=== PATIENT | female | born 1970 | race Caucasian/White ===

== ENCOUNTER → 2017-11-22 15:15 | Outpatient (CLI) | payer MEDICAID, SELFPAY ==
[2017-11-22 17:52] LABS: Anion Gap 11 (5-15); BUN 12 mg/dL (7-18); BUN/Creat Ratio 11.9 RATIO (10-20); Calcium,Total 8.9 mg/dL (8.5-10.1); Chloride 104 mmol/L (98-107); Cholesterol 218 mg/dL (200); Creatinine, Serum 1.01 mg/dL (0.55-1.02); EST Glomerular Filtration Rate 63 mL/min (>60); Est Glom Filt Rate - Afr Amer 76 mL/min (>60); Glucose 80 mg/dL (74-106); High Density Lipoprotein 37 mg/dL; Potassium 4.1 mmol/L (3.5-5.1); Sodium Level 140 mmol/L (136-145); T4 Total, Thyroxin 10.5 ug/dL (4.8-13.9); Thyroid Stim Hormone (TSH) 2.96 uIU/mL (0.358-3.74); Triglycerides 133 mg/dL; Very Low Density Lipoprotein 27 mg/dL (5-40)
[2017-11-22 18:29] LABS: HIV - WCH Non-Reactive (Nonreactive)
[2017-11-24 15:01] LABS: HPV Reflexed? NOT INDICATED
[2017-11-24 20:07] LABS: HEPATITIS B SURFACE AG Negative (Negative); Hepatitis B Core Ab Total Negative (Negative); Hepatitis Be Ab Negative (Negative); Hepatitis Be Ag Negative (Negative)
[2017-11-26 10:00] LABS: Hep B Surface Antibodies Non Reactive (.); Hep C Antibodies <0.1 s/co ratio (0.0-0.9); Hepatitis B Core AB IgM Negative (Negative)
== END ==
PROVIDERS: Family Provider Family Medicine; PCP Family Medicine; Visit Provider Family Medicine
DX: Z00.00 Encounter for general adult medical examination without abnormal findings (principal); I10 Essential (primary) hypertension; E03.9 Hypothyroidism, unspecified; Z12.4 Encounter for screening for malignant neoplasm of cervix; W46.0XXA Contact with hypodermic needle, initial encounter
CPT/HCPCS: 36415; 80048; 80061; 84436; 84443; 86703; 86704; 86705; 86706; 86707; 86803; 87340; 87350; 88175; G0145

== ENCOUNTER 2018-02-27 10:27 | Emergency (ER) | payer MEDICAID, SELFPAY ==
[2018-02-27 10:28] VITALS: BP 156/89; PULSE 70; RESP 15; TEMP 35.6; BMI 45.1
--- NOTE | 2018-02-27 10:56 | ED.VISSUMM ---
- ER Visit Summary Date of Service: 02/27/18 Chief Complaint: Left index finger laceration History of Present Illness: The patient is a 47 F past medical history of hypertension and hypothyroidism. Patient is right-hand dominant. Patient states she believes she needs update on her tetanus since her last tetanus shot was around 7-10 years ago but is not quite sure. Today she was cooking at home using a hand-held powder blender and pourer type of device and lacerated the tip of her left index finger. She denies any other injuries. This occurred within the last half an hour. She states it was bleeding but now the skin is seen in the leg down and is not bleeding currently. She denies any other injuries. Physical Examination: Well-appearing middle-age female. Vital signs are stable. She is afebrile. HEENT exam unremarkable. Lungs clear to auscultation. Heart regular rhythm. Abdomen soft nontender. Extremities moving all 4. Neurovascularly intact. Specifically the left hand there is a flap laceration on the palmar aspect the distal end of the left index finger. Skin is lay down. There is some dried blood but currently no bleeding. I cannot easily separate the wound. She has full flexion extension all digits of the left hand. There is no foreign body noted. No signs of infection. No active bleeding. She has normal touch sensation all digits. There is no bony deformity. Test Results: None Emergency Department Course and Treatment: Patient's tetanus status will be updated. I discussed with both her and her . Currently I cannot open the wound easily. She is comfortable with this being cleaned and dressed without any type of suture repair. Treatment Plan: Wound care. Disposition: Discharge Impression: Left index finger flap laceration without suture repair Tetanus updated This note was generated with [employer] dictation software. It may contain incorrect words, spelling, and punctuation that were not noted in review of the chart prior to signing ED Disposition - Plan for ED Patient: Chief Complaint: Laceration Referrals: Marylu Cartwright MD [Primary Care Provider] -
--- NOTE | 2018-02-27 10:59 | ED.DCSUM_ITS ---
- ER Visit Summary Date of Service: 02/27/18 Chief Complaint: Left index finger laceration History of Present Illness: The patient is a 47 F past medical history of hypertension and hypothyroidism. Patient is right-hand dominant. Patient states she believes she needs update on her tetanus since her last tetanus shot was around 7-10 years ago but is not quite sure. Today she was cooking at home using a hand-held inside sales engineer type of device and lacerated the tip of her left index finger. She denies any other injuries. This occurred within the last half an hour. She states it was bleeding but now the skin is seen in the leg down and is not bleeding currently. She denies any other injuries. Physical Examination: Well-appearing middle-age female. Vital signs are stable. She is afebrile. HEENT exam unremarkable. Lungs clear to auscultation. Heart regular rhythm. Abdomen soft nontender. Extremities moving all 4. Neurovascularly intact. Specifically the left hand there is a flap laceration on the palmar aspect the distal end of the left index finger. Skin is lay down. There is some dried blood but currently no bleeding. I cannot easily separate the wound. She has full flexion extension all digits of the left hand. There is no foreign body noted. No signs of infection. No active bleeding. She has normal touch sensation all digits. There is no bony deformity. Test Results: None Emergency Department Course and Treatment: Patient's tetanus status will be updated. I discussed with both her and her . Currently I cannot open the wound easily. She is comfortable with this being cleaned and dressed without any type of suture repair. Treatment Plan: Wound care. Disposition: Discharge Impression: Left index finger flap laceration without suture repair Tetanus updated This note was generated with [employer] dictation software. It may contain incorrect words, spelling, and punctuation that were not noted in review of the chart prior to signing ED Disposition - Plan for ED Patient: Chief Complaint: Laceration Referrals: Marylu Cartwright MD [Primary Care Provider] -
--- NOTE | 2018-02-27 10:59 | ED.DEP ---
ED Disposition - Plan for ED Patient: Disposition: Home or Assisted Living Chief Complaint: Laceration Instructions: ED Laceration Hand Referrals: Marylu Cartwright MD [Primary Care Provider] - As Needed Additional Instructions: Keep wound clean and dry. Keep the wound covered for the first 7 days. Apply antibiotic ointment daily. You may leave our dressing on for 3-5 days as long as it stays dry and clean. Return if any signs of infection.
[2018-02-27] MEDS: Diphth,Pertuss(Acell),Tet Vac 0.5 ML Vial IM (11:09)
--- OUTSIDE RECORDS SUMMARY | 2018-04-22 22:54 | XMS RPT_ITS ---
:1970 Author Organization OHIP Care Team Providers Name Role Phone Marylu Cartwright Attending Unavailable Marylu Cartwright Primary Care Unavailable Marylu Cartwright Primary Care Unavailable Dayday Stephenson Attending Unavailable Marylu Cartwright Attending Unavailable Marylu Cartwright Referring Unavailable Marylu Cartwright Primary Care Unavailable PROBLEMS PROBLEMS No Problem Records FoundPROCEDURES PROCEDURES No Procedure Records FoundRESULTS RESULTS NCS AND/OR EMG Observed: 03/02/2018 Status: F Source: [place] PATIENT 3:18 PM [facility] [place] [facility] Pulmonary Services/Neurology [address] [place] [address] MR#: [id number] Acct: [id number] Name: MAKENNA RAMIREZ Rep #: [id number] : 1970 47 From: Santos Thibodeaux MD Referring Dr: Marylu Cartwright MD Status: REG CLI Ordering Dr: Date: Location: [facility] Sex: F C NCS and/or EMG Patient Report Ordering Doctor: Marylu Cartwright DATE OF SERVICE: 03/02/18 Makenna Ramirez is a 47-year-old female presents for electrodiagnostic testing of the upper limbs. She has chief complaint of numbness and tingling in both hands. Electrodiagnostic findings: Median motor nerve demonstrates prolonged distal latency with normal amplitude and reduced conduction velocity on the right side. The left median motor nerve demonstrates prolonged distal latency with normal amplitude and conduction velocity. Normal ulnar motor response bilaterally. Normal median and ulnar F waves. Prolonged median sensory distal latency at the wrist bilaterally. Prolonged palmar median latencies noted bilaterally. Normal ulnar and radial sensory responses. Needle EMG testing shows no evidence of denervation in any muscle tested. Motor unit action potentials were of normal amplitude and duration. Electrodiagnostic impression: This is an abnormal study in the upper limbs. 1. Electrodiagnostic findings demonstrate bilateral median mononeuropathy. This is consistent with a moderate right carpal tunnel syndrome. Is also consistent with a mild to moderate left carpal tunnel syndrome. 2. No electrodiagnostic evidence for ulnar neuropathy, including cubital tunnel syndrome. If there are any further questions, please do not hesitate to contact me 03/02/18 1518 <Electronically signed by Santos Thibodeaux MD> Date Santos Thibodeaux MD CC: Marylu Cartwright MD; Santos Thibodeaux Date Dictated: 03/02/18 143 Date Transcribed: 03/02/181435 Biztalk Consultant: AA Signed EMERGENCY DEPARTMENT Observed: 02/27/2018 Status: F Source: [place] SUMMARY 4:37 PM [facility] [place] [facility] Medical Records Department [address] [place] [address] Emergency Department Summary 02/27/18 1056 MR#: [id number] Acct: [id number] Name: MAKENNA RAMIREZ Rep #: [id number] : 1970 47 From: Dayday Stephenson MD PCP: Marylu Cartwright MD Status: DEP ER - ER Visit Summary Date of Service: 02/27/18 Chief Complaint: Left index finger laceration History of Present Illness: The patient is a 47 F past medical history of hypertension and hypothyroidism. Patient is right-hand dominant. Patient states she believes she needs update on her tetanus since her last tetanus shot was around 7-10 years ago but is not quite sure. Today she was cooking at home using a hand-held gear hobber set up operator type of device and lacerated the tip of her left index finger. She denies any other injuries. This occurred within the last half an hour. She states it was bleeding but now the skin is seen in the leg down and is not bleeding currently. She denies any other injuries. Physical Examination: Well-appearing middle-age female. Vital signs are stable. She is afebrile. HEENT exam unremarkable. Lungs clear to auscultation. Heart regular rhythm. Abdomen soft nontender. Extremities moving all 4. Neurovascularly intact. Specifically the left hand there is a flap laceration on the palmar aspect the distal end of the left index finger. Skin is lay down. There is some dried blood but currently no bleeding. I cannot easily separate the wound. She has full flexion extension all digits of the left hand. There is no foreign body noted. No signs of infection. No active bleeding. She has normal touch sensation all digits. There is no bony deformity. Test Results: None Emergency Department Course and Treatment: Patient's tetanus status will be updated. I discussed with both her and her . Currently I cannot open the wound easily. She is comfortable with this being cleaned and dressed without any type of suture repair. Treatment Plan: Wound care. Disposition: Discharge Impression: Left index finger flap laceration without suture repair Tetanus updated This note was generated with AwesomeTouch dictation software. It may contain incorrect words, spelling, and punctuation that were not noted in review of the chart prior to signing ED Disposition - Plan for ED Patient: Chief Complaint: Laceration Referrals: Marylu Cartwright MD [Primary Care Provider] - What to do if you have Problems For any increased pain, shortness of breath, bleeding, nausea or vomiting, chest pain, or any unexpected problems, contact your Primary Care Provider. Call [facility] ([phone]) or report to the closest Emergency Room. Call 911 if necessary. 02/27/18 0996 <Electronically signed by Dayday Stephenson MD> Date Dayday Stephenson MD Cosigner Signature (If Indicated): Date CC: Marylu Cartwright MD DISCHARGE INSTRUCTION Observed: 02/27/2018 Status: F Source: [place] 4:37 PM [facility] [place] [facility] Medical Records Department [address] [place] [address] Discharge Instruction 02/27/18 1059 MR#: [id number] Acct: [id number] Name: MAKENNA RAMIREZ Rep #: [id number] : 1970 47 From: Dayday Stephenson MD PCP: Marylu Cartwright MD Status: DEP ER ED Disposition - Plan for ED Patient: Disposition: Home or Assisted Living Chief Complaint: Laceration Instructions: ED Laceration Hand Referrals: Marylu Cartwright MD [Primary Care Provider] - As Needed Additional Instructions: Keep wound clean and dry. Keep the wound covered for the first 7 days. Apply antibiotic ointment daily. You may leave our dressing on for 3-5 days as long as it stays dry and clean. Return if any signs of infection. What to do if you have Problems For any increased pain, shortness of breath, bleeding, nausea or vomiting, chest pain, or any unexpected problems, contact your Primary Care Provider. Call [facility] ([phone]) or report to the closest Emergency Room. Call 911 if necessary. 02/27/18 1637 <Electronically signed by Dayday Stephenson MD> Date Dayday Stephenson MD Cosigner Signature (If Indicated): Date CC: Marylu Cartwright MD BASIC METABOLIC Collected: 11/22/2017 Status: F Source: [place] PROFILE (BMP) 3:17 PM [facility] [place] Order Comment: Order Date: 11/22/17 Order Info: 0667-1 - BMP Order Info: 23677-7 - LIPID Order Info: 3026-2 - T4 Order Info: 3016-3 - TSH TYPE CODE TESTS RESULT OUT OF RANGE REFERENCE UNITS LAB L501.0100 74-106 mg/dL Normal GLU 80 Result Comment: Please note revised GLUCOSE reference range effective 2017. LAB L501.1000 7-18 mg/dL Normal BUN 12 LAB L501.1100 0.55-1.02 mg/dL Normal CREAT,SERUM 1.01 Result Comment: The validity of the calculated GFR AND GFRAA in patients over 70 years has not been determined. Clinical correlation is essential. LAB L501.1110 >60 mL/min Normal EST GFR 63 Result Comment: Non- GFR Calc LAB L501.1115 >60 mL/min Normal EST GFR - AA 76 Result Comment: GFR Calc LAB L501.1300 10-20 RATIO Normal BUN/CRE 11.9 LAB L501.2200 8.5-10.1 mg/dL CA Normal 8.9 LAB L501.5300 136-145 mmol/L NA Normal 140 LAB L501.5600 3.5-5.1 mmol/L K Normal 4.1 LAB L501.5900 98-107 mmol/L CL Normal 104 LAB L501.6100 21.0-32.0 mmol/L Normal CO2 25.0 LAB L501.6200 5-15 Normal GAP 11 Performed By: #### L500.2500, L500.4100, L501.9310, L501.9520, L3890.6005 #### [facility] [address] [place], [place], [address] #### L3100.0390, L3100.0420, L3100.0440, L3100.0460, L3100.0480, L3100.0528, L3100.0625 #### [facility] (refer to report for specific site) refer to report for address and phone number LIPID PROFILE Collected: 11/22/2017 Status: F Source: [place] 3:17 PM [facility] [place] [facility] Order Comment: Order Date: 11/22/17 Order Info: 0667-1 - BMP Order Info: 70484-4 - LIPID Order Info: 3026-2 - T4 Order Info: 3016-3 - TSH TYPE CODE TESTS RESULT OUT OF RANGE REFERENCE UNITS LAB L501.4900 200 mg/dL High CHOL 218 Result Comment: <200 mg/dL Desirable 200-240 mg/dL Borderline >240 mg/dL High Risk LAB L501.5000 mg/dL Normal TRIG 133 Result Comment: The drugs N-Acetylcysteine and Metamizole may falsely depress this assay. Serum Triglycerides Reference Interval Normal <150 mg/dL Borderline high 150 - 199 mg/dL High 200 - 499 mg/dL Very High > or = 500 mg/dL LAB L501.6400 mg/dL Low HDL 37 Result Comment: The drugs N-Acetylcysteine and Metamizole may falsely depress this assay. Reference Range HDL <40 mg/dL Low HDL Cholesterol HDL >or= 60 mg/dL High HDL Cholesterol LAB L501.6500 0-130 mg/dL High LDL 154 LAB L501.6600 5-40 mg/dL Normal VLDL 27 Performed By: #### L500.2500, L500.4100, L501.9310, L501.9520, L3890.6005 #### [facility] [address] [facility] [place], [address] #### L3100.0390, L3100.0420, L3100.0440, L3100.0460, L3100.0480, L3100.0528, L3100.0625 #### [facility] (refer to report for specific site) refer to report for address and phone number T4 TOTAL, THYROXIN Collected: 11/22/2017 Status: F Source: [place] 3:17 PM [facility] [place] [facility] Order Comment: Order Date: 11/22/17 Order Info: 0667-1 - BMP Order Info: 76866-0 - LIPID Order Info: 3026-2 - T4 Order Info: 3016-3 - TSH TYPE CODE TESTS RESULT OUT OF RANGE REFERENCE UNITS LAB L501.9310 4.8-13.9 ug/dL T4 Normal THYROXIN 10.5 Performed By: #### L500.2500, L500.4100, L501.9310, L501.9520, L3890.6005 #### [facility] [address] [facility] [place], [address] #### L3100.0390, L3100.0420, L3100.0440, L3100.0460, L3100.0480, L3100.0528, L3100.0625 #### [facility] (refer to report for specific site) refer to report for address and phone number THYROID STIM HORMONE Collected: 11/22/2017 Status: F Source: [place] (TSH) 3:17 PM [facility] [place] [facility] Order Comment: Order Date: 11/22/17 Order Info: 0667-1 - BMP Order Info: 13694-6 - LIPID Order Info: 3026-2 - T4 Order Info: 3016-3 - TSH TYPE CODE TESTS RESULT OUT OF RANGE REFERENCE UNITS LAB L501.9520 0.358-3.74 uIU/mL Normal TSH 2.96 Performed By: #### L500.2500, L500.4100, L501.9310, L501.9520, L3890.6005 #### [facility] [address] [facility] [place], [address] #### L3100.0390, L3100.0420, L3100.0440, L3100.0460, L3100.0480, L3100.0528, L3100.0625 #### [facility] (refer to report for specific site) refer to report for address and phone number HIV - [facility] Collected: 11/22/2017 Status: F Source: [place] 3:17 PM [facility] [place] Order Comment: Order Date: 11/22/17 Order Info: 0197-1 - VIAB TYPE CODE TESTS RESULT OUT OF RANGE REFERENCE UNITS LAB L3890.6005 Nonreactive Normal HIV - [facility] Non-Reactive Performed By: #### L500.2500, L500.4100, L501.9310, L501.9520, L3890.6005 #### [facility] [address] [facility] [place], [address] #### L3100.0390, L3100.0420, L3100.0440, L3100.0460, L3100.0480, L3100.0528, L3100.0625 #### [facility] (refer to report for specific site) refer to report for address and phone number HEPATITIS B SURFACE Collected: 11/22/2017 Status: F Source: [place] AG 3:17 PM [facility] [place] [facility] Order Comment: Order Date: 11/22/17 Order Info: 0433-1 - HEBSAG Order Info: 88981-7 - HEBEAG Order Info: 56887-4 - HEBCM Order Info: 05183-7 - HEBCT Order Info: 44005-5 - HEBEAB Order Info: 42154-5 - HEBSAB Order Info: 0363-1 - HECAB TYPE CODE TESTS RESULT OUT OF RANGE REFERENCE UNITS LAB L3100.0400 Negative Normal HB Negative SURF AG Performed By: #### L500.2500, L500.4100, L501.9310, L501.9520, L3890.6005 #### [facility] [address] [place], [address] #### L3100.0390, L3100.0420, L3100.0440, L3100.0460, L3100.0480, L3100.0528, L3100.0625 #### [facility] (refer to report for specific site) refer to report for address and phone number HEPATITIS BE AG Collected: 11/22/2017 Status: F Source: [place] 3:17 PM [facility] [place] Order Comment: Order Date: 11/22/17 Order Info: 0433-1 - HEBSAG Order Info: 66378-3 - HEBEAG Order Info: 82387-0 - HEBCM Order Info: 02850-9 - HEBCT Order Info: - HEBEAB Order Info: 60863-0 - HEBSAB Order Info: 0363-1 - HECAB TYPE CODE TESTS RESULT OUT OF RANGE REFERENCE UNITS LAB L3100.0420 Negative Normal HEP Negative Be AG 6619 Performed By: #### L500.2500, L500.4100, L501.9310, L501.9520, L3890.6005 #### [facility] [address] [place], [address] #### L3100.0390, L3100.0420, L3100.0440, L3100.0460, L3100.0480, L3100.0528, L3100.0625 #### [facility] (refer to report for specific site) refer to report for address and phone number HEPATITIS B CORE AB Collected: 11/22/2017 Status: F Source: [place] IGM 3:17 PM [facility] RE[facility] Order Comment: Order Date: 11/22/17 Order Info: 043- - HEBSAG Order Info: 60881-8 - HEBEAG Order Info: 63207-1 - HEBCM Order Info: 00909-7 - HEBCT Order Info: 45660-0 - HEBEAB Order Info: 56136-5 - HEBSAB Order Info: 0363-1 - HECAB TYPE CODE TESTS RESULT OUT OF RANGE REFERENCE UNITS LAB L3100.0440 Negative Normal HB Negative CORE [id number] Result Comment: Performed at: [facility] [address] [id number] Director Food And Beverage: Hernan Martinez PhD, Phone: [phone] Performed By: #### L500.2500, L500.4100, L501.9310, L501.9520, L3890.6005 #### [facility] [address] [place], [address] #### L3100.0390, L3100.0420, L3100.0440, L3100.0460, L3100.0480, L3100.0528, L3100.0625 #### [facility] (refer to report for specific site) refer to report for address and phone number HEPATITIS B CORE AB Collected: 11/22/2017 Status: F Source: [place] TOTAL 3:17 PM [facility] [place] Order Comment: Order Date: 11/22/17 Order Info: 043- - HEBSAG Order Info: 12167-3 - HEBEAG Order Info: 12825-3 - HEBCM Order Info: 34153-0 - HEBCT Order Info: - HEBEAB Order Info: 44807-7 - HEBSAB Order Info: 0363-1 - HECAB TYPE CODE TESTS RESULT OUT OF RANGE REFERENCE UNITS LAB L3100.0460 Negative Normal HEP B Negative CORE,TOT Performed By: #### L500.2500, L500.4100, L501.9310, L501.9520, L3890.6005 #### [facility] [address] [place], [place], [address] #### L3100.0390, L3100.0420, L3100.0440, L3100.0460, L3100.0480, L3100.0528, L3100.0625 #### [facility] (refer to report for specific site) refer to report for address and phone number HEPATITIS BE AB Collected: 11/22/2017 Status: F Source: [place] 3:17 PM [facility] [place] [facility] Order Comment: Order Date: 11/22/17 Order Info: 3-1 - HEBSAG Order Info: 33158-5 - HEBEAG Order Info: 68813-9 - HEBCM Order Info: - HEBCT Order Info: - HEBEAB Order Info: - HEBSAB Order Info: 036-1 - HECAB TYPE CODE TESTS RESULT OUT OF RANGE REFERENCE UNITS LAB L3100.0480 Negative Normal HEP Negative Be Ab 6635 Performed By: #### L500.2500, L500.4100, L501.9310, L501.9520, L3890.6005 #### [facility] [address] [place], [place], [address] #### L3100.0390, L3100.0420, L3100.0440, L3100.0460, L3100.0480, L3100.0528, L3100.0625 #### [facility] (refer to report for specific site) refer to report for address and phone number HEP B SURFACE Collected: 11/22/2017 Status: F Source: [place] ANTIBODIES 3:17 PM [facility] [place] [facility] Order Comment: Order Date: 11/22/17 Order Info: 0433-1 - HEBSAG Order Info: 36034-5 - HEBEAG Order Info: 88512-0 - HEBCM Order Info: - HEBCT Order Info: - HEBEAB Order Info: - HEBSAB Order Info: 0363-1 - HECAB TYPE CODE TESTS RESULT OUT OF RANGE REFERENCE UNITS LAB L3100.0528 . Normal Hep B Non Reactive Dale AB Result Comment: Non Reactive: Inconsistent with immunity, less than 10 mIU/mL Reactive: Consistent with immunity, greater than 9.9 mIU/mL Performed By: #### L500.2500, L500.4100, L501.9310, L501.9520, L3890.6005 #### [facility] [address] [place], [place], [address] #### L3100.0390, L3100.0420, L3100.0440, L3100.0460, L3100.0480, L3100.0528, L3100.0625 #### [facility] (refer to report for specific site) refer to report for address and phone number HEPATITIS C ANTIBODIES Collected: 11/22/2017 Status: F Source: [place] 3:17 PM [facility] [place] [facility] Order Comment: Order Date: 11/22/17 Order Info: 0433-1 - HEBSAG Order Info: 99996-2 - HEBEAG Order Info: 09870-4 - HEBCM Order Info: 65635-1 - HEBCT Order Info: 39479-3 - HEBEAB Order Info: 10085-0 - HEBSAB Order Info: 0363-1 - HECAB TYPE CODE TESTS RESULT OUT OF RANGE REFERENCE UNITS LAB L3100.0650 0.0-0.9 s/co ratio Normal HEP C AB <0.1 Result Comment: Negative: < 0.8 Indeterminate: 0.8 - 0.9 Positive: > 0.9 The CDC recommends that a positive HCV antibody result be followed up with a HCV Nucleic Acid Amplification test (345688). Performed By: #### L500.2500, L500.4100, L501.9310, L501.9520, L3890.6005 #### [facility] [address] 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 of containers..01 ThinPrep Vial TYPE CODE TESTS RESULT OUT OF RANGE REFERENCE UNITS LAB L7400.0800 . Normal DIAGN Comment Result Comment: NEGATIVE FOR INTRAEPITHELIAL LESION AND MALIGNANCY. LAB L7400.0900 . Normal ADEQ Comment Result Comment: Satisfactory for evaluation. Endocervical and/or squamous metaplastic cells (endocervical component) are present. LAB L7400.1400 . Normal PERFORM Comment Result Comment: Erica Sanford, Animal Biologist (ASCP) LAB L7400.2575 . Normal TEST METHOD Comment Result Comment: This liquid based ThinPrep(R) pap test was screened with the use of an image guided system. LAB L7400.2600 . Normal . COMM LAB L7400.2700 . Normal PAPSMR Comment Result Comment: The Pap smear is a screening test designed to aid in the detection of premalignant and malignant conditions of the uterine cervix. It is not a diagnostic procedure and should not be used as the sole means of detecting cervical cancer. Both false-positive and false-negative reports do occur. LAB L7400.2800 . Normal HPV RFLX Comment Result Comment: The HPV DNA reflex criteria were not met with this specimen result therefore, no HPV testing was performed. Performed at: [facility] [id number] Director Food And Beverage: Mitzi Rachel MD, Phone: [phone] Performed By: #### L7400.0350 #### [facility] (refer to report for specific site) refer to report for address and phone number ALLERGIES ALLERGIES DATE TYPE / CODE NAME / CODE REACTION SEVERITY SOURCE 02/27/2018 [facility]/F00 [facility] [address](SNOMED [id number](RXNOR Repository CT) M) ENCOUNTERS ENCOUNTERS ADMIT/DISCHARGE ACCOUNT ADMITTING ENCOUNTER LOCATION SOURCE NUMBER CLASS 03/02/2018 [id number] Ambulatory [place] 9 [facility] ing:PSN Repository 02/27/2018/ [id number] Emergency [place] 8 9 [facility] ing:ED Repository 11/22/2017 [id number] Ambulatory [place] 8 [facility] ing:MFPLAB Repository PAYERS PAYERS ENCOUNTER GUARANTOR PAYER SUBSCRIBER SOURCE 03/02/2018 SIMI Chaudhari Primary Insurance:[facility] MAKENNA [id number] [facility] PLANPolicy DULANEYDOB: [facility] [place] [place] Number: [id number] [address]Brk: 330 [id number] Repository [phone] (HP) Date:1834-08-17BO [address] [address]IP: 03/02/2018 Secondary NOT GIVENUNK [place] Insurance:SELF PAY [facility] Number: Effective Repository Date:2017-11-22 02/27/2018 SIMI Chaudhari Primary Insurance:[facility] MAKENNA [id number] [facility] PLANPolicy DULANEYDOB: [facility] [place], [place] Number: [id number] [address]Pip: 330 [id number] Repository [phone] (HP) Date:[id number] [address] [address]KC: 02/27/2018 Secondary NOT GIVENUNK Campbell Insurance:SELF PAY [facility] Number: Effective Repository Date:2018-02-27 11/22/2017 Richard Chaudhari Primary Insurance:[facility] Makenna Bolanosy147 [facility] [place]aneyD[facility]: [facility] [place] Number: [id number] [address]Rgf: 330 [id number] Repository [phone] (HP) Date:[id number] [address] [address]UT: 11/22/2017 Secondary NOT GIVENUNK Stanley Insurance:SELF PAY [facility] Number: Effective Repository Date:2017-11-22
== END 2018-02-27 11:34 | disposition home or self-care (01) ==
LOC: ED 11:05
PROVIDERS: Emergency Provider Emergency Medicine; Family Provider Family Medicine; PCP Family Medicine
DX: S61.211A Laceration without foreign body of left index finger without damage to nail, initial encounter (principal); Z23 Encounter for immunization; E03.9 Hypothyroidism, unspecified; I10 Essential (primary) hypertension; Z79.899 Other long term (current) drug therapy; W29.0XXA Contact with powered kitchen appliance, initial encounter; Y93.G1 Activity, food preparation and clean up; Y92.000 Kitchen of unspecified non-institutional (private) residence as the place of occurrence of the external cause; Y99.8 Other external cause status
CPT/HCPCS: 90715; 99282

== ENCOUNTER → 2018-03-02 13:20 | Outpatient (CLI) | payer MEDICAID, SELFPAY ==
[2018-02-27 10:28] VITALS: BMI 45.1
--- NOTE | 2018-03-02 14:36 | NEURO ---
NCS and/or EMG Patient Report Ordering Doctor: Marylu Cartwright DATE OF SERVICE: 03/02/18 Makenna Maher is a 47-year-old female presents for electrodiagnostic testing of the upper limbs. She has chief complaint of numbness and tingling in both hands. Electrodiagnostic findings: Median motor nerve demonstrates prolonged distal latency with normal amplitude and reduced conduction velocity on the right side. The left median motor nerve demonstrates prolonged distal latency with normal amplitude and conduction velocity. Normal ulnar motor response bilaterally. Normal median and ulnar F waves. Prolonged median sensory distal latency at the wrist bilaterally. Prolonged palmar median latencies noted bilaterally. Normal ulnar and radial sensory responses. Needle EMG testing shows no evidence of denervation in any muscle tested. Motor unit action potentials were of normal amplitude and duration. Electrodiagnostic impression: This is an abnormal study in the upper limbs. 1. Electrodiagnostic findings demonstrate bilateral median mononeuropathy. This is consistent with a moderate right carpal tunnel syndrome. Is also consistent with a mild to moderate left carpal tunnel syndrome. 2. No electrodiagnostic evidence for ulnar neuropathy, including cubital tunnel syndrome. If there are any further questions, please do not hesitate to contact me
== END ==
PROVIDERS: Family Provider Family Medicine; PCP Family Medicine; Referring Provider Family Medicine; Visit Provider Family Medicine
DX: G56.00 Carpal tunnel syndrome, unspecified upper limb (principal)
CPT/HCPCS: 95886; 95912

== ENCOUNTER → 2019-09-06 | Outpatient (CLI) | payer MEDICAID, SELFPAY ==
[2019-09-06 12:45] LABS: Anion Gap 8 (5-15); BUN 13 mg/dL (7-18); BUN/Creat Ratio 13.9 RATIO (10-20); Calcium,Total 9.3 mg/dL (8.5-10.1); Chloride 103 mmol/L (98-107); Creatinine, Serum 0.93 mg/dL (0.55-1.02); EST Glomerular Filtration Rate 69 mL/min (>60); Est Glom Filt Rate - Afr Amer 83 mL/min (>60); Glucose 137 mg/dL (74-106); Potassium 4.4 mmol/L (3.5-5.1); Sodium Level 137 mmol/L (136-145); T4 Total, Thyroxin 9.3 ug/dL (4.8-13.9); Thyroid Stim Hormone (TSH) 2.43 uIU/mL (0.358-3.74)
== END | disposition home or self-care (01) ==
LOC: MFPLAB 10:00
PROVIDERS: PCP Family Medicine; Visit Provider Family Medicine
DX: E03.9 Hypothyroidism, unspecified (principal); I10 Essential (primary) hypertension
CPT/HCPCS: 36415; 80048; 84436; 84443

== ENCOUNTER → 2021-03-19 10:31 | Outpatient (CLI) | payer MEDICAID, SELFPAY ==
--- NOTE | 2021-03-19 12:28 | NEURO_ITS ---
NCS and/or EMG Patient Report Ordering Doctor: Swetha Peña DATE OF SERVICE: 03/19/21 Makenna Maher presents for electrodiagnostic testing of the upper limbs. She reports nonrecurring numbness and tingling in the hands for the past 4 months. She had bilateral carpal tunnel repair in July 2019 with excellent relief of symptoms. She reports intermittent neck pain in the schedule for an MRI. Electrodiagnostic findings: Median motor nerve demonstrates prolonged distal latency bilaterally with normal amplitude and conduction velocity. Normal ulnar motor response bilaterally. Prolonged median sensory latency bilaterally. Prolonged right median palmar latency. Normal ulnar and radial sensory respons es. On needle EMG, all muscles tested in the upper limbs and the cervical paraspinal showed no evidence of denervation with normal motor unit action potentials Electrodiagnostic assessment: This is an abnormal study in the upper limbs. 1. Electrodiagnostic findings demonstrate bilateral median mononeuropathy, consistent with a mild recurrent bilateral carpal tunnel syndrome. 2. No electrodiagnostic evidence is noted for cervical radiculopathy. 3. No electrodiagnostic evidence for ulnar neuropathy, including cubital tunnel syndrome
== END ==
PROVIDERS: PCP Family Medicine; Referring Provider Physician Assistant; Visit Provider Physician Assistant
DX: G56.03 Carpal tunnel syndrome, bilateral upper limbs (principal)
CPT/HCPCS: 95886; 95913

== ENCOUNTER 2021-04-07 19:58 | Outpatient (CLI) | payer MEDICAID, SELFPAY | END 2021-04-07 23:59 | disposition short-term general hospital (02) | PROVIDERS: PCP Family Medicine; Visit Provider Family Medicine | DX: G47.30 Sleep apnea, unspecified (principal) | CPT/HCPCS: 95810 ==

== ENCOUNTER 2021-06-23 09:58 | Outpatient (CLI) | payer MEDICAID, SELFPAY ==
--- NOTE | 2021-06-23 10:01 | EKG12_ITS ---
Test Reason : PREOP Blood Pressure : / mmHG Vent. Rate : 065 BPM Atrial Rate : 065 BPM P-R Int : 136 ms QRS Dur : 094 ms QT Int : 394 ms P-R-T Axes : 015 004 038 degrees QTc Int : 409 ms Normal sinus rhythm Normal ECG Confirmed by MESFIN HICKS, ROSA ([id number]), clinical editor RAJWINDER NANCE ([id number]) on 06/24/2021 10:43:09 AM Referred By: Saman Chew Confirmed By:ROSA TOURE MD
[2021-07-01 14:57] LABS: Hematocrit 42.9 % (37-47); Hemoglobin 14.6 g/dL (12.0-15.0); Mean Corpuscular Hgb 29.8 pg (27.0-32.0); Mean Corpuscular Volume 87.6 fL (81-99); Mean Platelet Vol. 9.8 fl (6.2-12.0); Platelet Count 285 K/mm3 (150-450); RBC Distribution Width SD 38.7 fl (35.1-43.9)
[2021-07-01 15:26] LABS: Anion Gap 3 (5-15); BUN 15 mg/dL (7-18); BUN/Creat Ratio 12.7 RATIO (10-20); Calcium,Total 9.2 mg/dL (8.5-10.1); Chloride 110 mmol/L (98-107); Creatinine, Serum 1.18 mg/dL (0.55-1.02); EST Glomerular Filtration Rate 52 mL/min (>60); Est Glom Filt Rate - Afr Amer 63 mL/min (>60); Glucose 134 mg/dL (74-106); Sodium Level 141 mmol/L (136-145)
== END 2021-06-23 23:59 | disposition home or self-care (01) ==
PROVIDERS: PCP Family Medicine; Referring Provider Physician Assistant; Visit Provider Physician Assistant
DX: Z01.810 Encounter for preprocedural cardiovascular examination (principal)
CPT/HCPCS: 36415; 80048; 85027; 93005

== ENCOUNTER → 2021-07-29 | Outpatient (CLI) | payer MEDICAID, SELFPAY ==
[2021-07-29 12:52] LABS: Cholesterol 213 mg/dL (200); High Density Lipoprotein 37 mg/dL; T4 Total, Thyroxin 9.4 ug/dL (4.8-13.9); Thyroid Stim Hormone (TSH) 1.54 uIU/mL (0.358-3.74); Triglycerides 186 mg/dL; Very Low Density Lipoprotein 37 mg/dL (5-40)
[2021-07-29 12:59] LABS: Microalbumin,Random Urine 17.2 mg/L (NO RANGE EST.); Microalbumin:Creatinine Ratio 16.9 mg/g CRE (<30 mg/g CRE)
== END | disposition home or self-care (01) ==
LOC: MFPLAB 11:29
PROVIDERS: PCP Family Medicine; Referring Provider Family Medicine; Visit Provider Family Medicine
DX: I10 Essential (primary) hypertension (principal); E03.9 Hypothyroidism, unspecified
CPT/HCPCS: 36415; 80061; 82043; 82570; 84436; 84443

== ENCOUNTER → 2022-01-27 | Outpatient (CLI) | payer MEDICAID, SELFPAY | END | disposition home or self-care (01) | LOC: SL 21:11 | PROVIDERS: PCP Family Medicine; Referring Provider Internal Medicine Critical Care Medicine; Visit Provider Internal Medicine Critical Care Medicine | DX: G47.33 Obstructive sleep apnea (adult) (pediatric) (principal) | CPT/HCPCS: 95810 ==

== ENCOUNTER → 2022-09-09 | Outpatient (CLI) | payer MEDICAID, SELFPAY ==
[2022-09-09 12:53] LABS: Microalbumin,Random Urine 31.7 mg/L (NO RANGE EST.)
[2022-09-09 13:05] LABS: Anion Gap 5 (5-15); BUN 13 mg/dL (7-18); BUN/Creat Ratio 14.1 RATIO (10-20); Calcium,Total 9.4 mg/dL (8.5-10.1); Chloride 106 mmol/L (98-107); Cholesterol 263 mg/dL (200); Creatinine, Serum 0.92 mg/dL (0.55-1.02); EST Glomerular Filtration Rate 68 mL/min (>60); Est Glom Filt Rate - Afr Amer 83 mL/min (>60); Glucose 128 mg/dL (74-106); High Density Lipoprotein 42 mg/dL; Potassium 4.7 mmol/L (3.5-5.1); Sodium Level 137 mmol/L (136-145); T4 Total, Thyroxin 10.5 ug/dL (4.8-13.9); Triglycerides 148 mg/dL; Very Low Density Lipoprotein 30 mg/dL (5-40)
== END | disposition home or self-care (01) ==
LOC: MFPLAB 10:00
PROVIDERS: PCP Family Medicine; Visit Provider Family Medicine
DX: I10 Essential (primary) hypertension (principal); E03.9 Hypothyroidism, unspecified
CPT/HCPCS: 36415; 80048; 80061; 82043; 82570; 84436; 84443

== ENCOUNTER → 2022-12-16 | Outpatient (CLI) | payer MEDICAID, SELFPAY ==
--- NOTE | 2022-12-16 13:19 | NEURO ---
NCS and/or EMG Patient Report Ordering Doctor: James Medina DATE OF SERVICE: 12/16/22 Makenna presents for electrodiagnostic testing of the left upper limb. She complains of pain and tingling around the elbow. Electrodiagnostic findings: Left median motor nerve demonstrates normal distal latency, amplitude and conduction velocity. Left ulnar motor response is within normal limits, without significant drop in conduction across the elbow. Normal median and ulnar F waves. Normal median, ulnar and radial sensory responses. Needle EMG testing was performed the left upper limb. Muscles tested showed no evidence of denervation with normal motor unit action potentials. Electrodiagnostic impression: This is a normal electrodiagnostic study of the left upper limb. There is no electrodiagnostic evidence for ulnar neuropathy, including cubital tunnel syndrome. There is no electrodiagnostic evidence for recurrent carpal tunnel syndrome. There is no electrodiagnostic evidence for cervical radiculopathy. Multi [facility] Codes Neurology Neurology Interp Codes: 98791-09 Musc test done w/n test comp (interp) and 84820-32 Nrv cndj test 7-8 studies (interp)
== END | disposition home or self-care (01) ==
LOC: PSN 08:28
PROVIDERS: PCP Family Medicine; Referring Provider Student in an Organized Health Care Education/Training Program; Visit Provider Student in an Organized Health Care Education/Training Program
DX: R20.2 Paresthesia of skin (principal); G56.32 Lesion of radial nerve, left upper limb
CPT/HCPCS: 95886; 95910

== ENCOUNTER → 2023-07-19 | Outpatient (CLI) | payer MEDICAID, SELFPAY ==
[2023-07-19 12:04] LABS: Absolute Neutrophil Count 4.9 X10^3/uL (2.0-7.7); Basophil# 0.05 X10^3/uL; Basophil% 0.7 % (0-1); Eosinophil# 0.09 X10^3/uL; Eosinophils% 1.2 % (0-5); Hematocrit 44.9 % (37-47); Hemoglobin 14.8 g/dL (12.0-15.0); Mean Corpuscular Hgb 28.5 pg (27.0-32.0); Mean Corpuscular Volume 86.5 fL (81-99); Mean Platelet Vol. 10.4 fl (6.2-12.0); Monocyte# 0.61 X10^3/uL; Monocyte% 7.9 % (0-10); NRBC Flagged by Analyzer 0 % (0-5); Neutrophil # 4.92 X10^3/uL (2.7-7.7); Neutrophil % 63.9 % (47-70); Platelet Count 272 K/mm3 (150-450); RBC Distribution Width CV 11.6 % (11.6-14.6); Red Blood Count 5.19 M/mm3 (4.2-5.4); White Blood Count 7.7 K/mm3 (4.4-11.0)
[2023-07-19 12:29] LABS: Protein, Urine (Random) 14.5 mg/dL (<11.9); Protein:Creat Ratio 110 mg/g CRE (0-200)
[2023-07-19 12:52] LABS: AST(SGOT) 17 U/L (15-37); Alanine Aminotransfer ALT/SGPT 27 U/L (13-56); Anion Gap 8 (5-15); BUN 14 mg/dL (7-18); BUN/Creat Ratio 15.5 RATIO (10-20); Calcium,Total 9.1 mg/dL (8.5-10.1); Chloride 105 mmol/L (98-107); Cholesterol 137 mg/dL (200); EST Glomerular Filtration Rate 70 mL/min (>60); Est Glom Filt Rate - Afr Amer 85 mL/min (>60); Glucose 132 mg/dL (74-106); High Density Lipoprotein 42 mg/dL; Potassium 4.2 mmol/L (3.5-5.1); Sodium Level 136 mmol/L (136-145); T4 Total, Thyroxin 8.5 ug/dL (4.8-13.9); Thyroid Stim Hormone (TSH) 8.31 uIU/mL (0.358-3.74); Triglycerides 136 mg/dL; Very Low Density Lipoprotein 27 mg/dL (5-40)
== END | disposition home or self-care (01) ==
LOC: MFPLAB 10:15
PROVIDERS: PCP Family Medicine; Visit Provider Family Medicine
DX: F32.A Depression, unspecified (principal); E03.9 Hypothyroidism, unspecified; E78.5 Hyperlipidemia, unspecified; I10 Essential (primary) hypertension
CPT/HCPCS: 36415; 80048; 80061; 82570; 84156; 84436; 84443; 84450; 84460; 85025

== ENCOUNTER → 2024-08-22 | Outpatient (CLI) | payer MEDICAID, SELFPAY | END | disposition home or self-care (01) | LOC: SL 11:56 | PROVIDERS: PCP Family Medicine; Referring Provider Internal Medicine Critical Care Medicine; Visit Provider Internal Medicine Critical Care Medicine | DX: G47.33 Obstructive sleep apnea (adult) (pediatric) (principal) | CPT/HCPCS: 95806 ==

== ENCOUNTER → 2024-10-11 | Outpatient (CLI) | payer MEDICAID, SELFPAY ==
[2024-10-11 10:05] LABS: Cholesterol 152 mg/dL (<=200); Low Density Lipoprotein Calc. 79 mg/dL; Triglycerides 167 mg/dL; Very Low Density Lipoprotein 33 mg/dL (5-40); cholesterol:hdl ratio screen 3.85
== END | disposition home or self-care (01) ==
LOC: LAB 08:38
PROVIDERS: PCP Family Medicine; Referring Provider Family Medicine; Visit Provider Family Medicine
DX: E03.9 Hypothyroidism, unspecified (principal); E78.5 Hyperlipidemia, unspecified
CPT/HCPCS: 36415; 80061; 84443

== ENCOUNTER → 2024-11-09 | Outpatient (CLI) | payer MEDICAID, SELFPAY ==
[2024-11-09 12:48] LABS: Anion Gap 11 (5-15); BUN 13 mg/dL (4-19); BUN/Creat Ratio 15.7 RATIO (10-20); Calcium,Total 9.5 mg/dL (7.6-11.0); Carbon Dioxide 24.2 mmol/L (21.0-32.0); Chloride 102 mmol/L (98-108); Glucose 183 mg/dL (70-99); Magnesium 2.3 mg/dL (1.5-2.2); Potassium 4.7 mmol/L (3.3-5.1)
== END | disposition home or self-care (01) ==
LOC: MFPLAB 09:30
PROVIDERS: PCP Family Medicine; Visit Provider Family Medicine
DX: M62.838 Other muscle spasm (principal)
CPT/HCPCS: 36415; 80048; 83735

== ENCOUNTER → 2024-12-04 | Outpatient (CLI) | payer MEDICAID, SELFPAY ==
[2024-12-04 10:24] LABS: Hematocrit 41.5 % (37-47); Hemoglobin 13.7 g/dL (12.0-15.0); Immature Granulocytes Count 0.030 X10^3/uL (0.0-0.0); Mean Corp Hgb Conc 33.0 g/dL (32-36); Mean Corpuscular Volume 87.4 fL (81-99); Mean Platelet Vol. 10.3 fl (6.2-12.0); NRBC Flagged by Analyzer 0 % (0-5); Platelet Count 256 K/mm3 (150-450); RBC Distribution Width CV 12.7 % (11.6-14.6); RBC Distribution Width SD 40.7 fl (35.1-43.9); Red Blood Count 4.75 M/mm3 (4.2-5.4); White Blood Count 8.0 K/mm3 (4.4-11.0)
[2024-12-04 11:15] LABS: AST(SGOT) 26 U/L (<=31); Alanine Aminotransfer ALT/SGPT 30 U/L (<=34); Albumin, Serum 4.0 g/dL (3.5-5.0); Alkaline Phosphatase 104 U/L (35-104); Anion Gap 12 (5-15); BUN 18 mg/dL (4-19); BUN/Creat Ratio 24.3 RATIO (10-20); Calcium,Total 9.4 mg/dL (7.6-11.0); Carbon Dioxide 20.2 mmol/L (21.0-32.0); Chloride 102 mmol/L (98-108); Globulin 3.0 g/dL (2.2-4.2); Glucose 179 mg/dL (70-99); Potassium 4.4 mmol/L (3.3-5.1)
== END | disposition home or self-care (01) ==
LOC: MFPLAB 08:35
PROVIDERS: PCP Family Medicine; Visit Provider Family Medicine
DX: I10 Essential (primary) hypertension (principal); E03.9 Hypothyroidism, unspecified; R73.09 Other abnormal glucose
CPT/HCPCS: 36415; 80053; 83036; 84443; 85025

== ENCOUNTER → 2025-02-21 | Outpatient (CLI) | payer MEDICAID, SELFPAY | END | disposition home or self-care (01) | LOC: SL 09:42 | PROVIDERS: PCP Family Medicine; Visit Provider Nurse Practitioner Acute Care | DX: G47.33 Obstructive sleep apnea (adult) (pediatric) (principal) | CPT/HCPCS: 98960; G0463 ==

== ENCOUNTER → 2025-03-07 | Outpatient (CLI) | payer MEDICAID, SELFPAY ==
--- OUTSIDE RECORDS SUMMARY | 2025-03-07 07:21 | XMS RPT_ITS | CCD ---
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 Kristian Lainez on 12-04-2024 MCH (RBC) [Entitic mass] 28.8 pg 27.0-32.0 [facility] Mean corpuscular hemoglobin concentration (MCHC) determinationOrdered By: Kristian Lainez on 12-04-2024 MCHC (RBC) [Mass/Vol] 33.0 g/dL 32-36 [facility] Mean platelet volume determi nationOrdered By: Kristian Lainez on 12-04-2024 Platelet mean volume (Bld) [Entitic vol] 10.3 fL 6.2-12.0 [facility] Monocyte percentageOrdered B y: Kristian Lainez on 12-04-2024 Monocytes/100 WBC (Bld) 8.7 % 0-10 [facility] Neutrophil percentageOrdered By: Kristian Lainez on 12-04-2024 Neutrophils/100 WBC (Bld) 61.2 % 47-70 [facility] Nucleated red blood cell per centageOrdered By: Kristian Lainez on 12-04-2024 Nucleated RBC/100 WBC (Bld) [Ratio] 0 % 0-5 [facility] Platelet countOrdered By: Crista Lainez on 12-04-2024 Platelets (Bld) [#/Vol] 256 10*3/uL 150-450 [facility] Potassium measurement (mass/ volume)Ordered By: Kristian Lainez on 12-04-2024 Potassium (Unsp spec) [Mass/Vol] 4.4 mmol/L 3.3-5.1 [facility] RBC Auto (Bld) [#/Vol]Ordere d By: Kristian Lainez on 12-04-2024 RBC (Bld) [#/Vol] 4.75 10*6/uL 4.2-5.4 [facility] Serum creatinine measurement (mass/volume)Ordered By: Kristian Lainez on 12-04-2024 Creatinine [Mass/Vol] 0.75 mg/dL 0.70-1.20 [facility] Serum globulin measurementOr dered By: Kristian Lainez on 12-04-2024 Globulin (S) [Mass/Vol] 3.0 g/dL 2.2-4.2 [facility] Serum glucose measurement (m ass/volume)Ordered By: Kristian Lainez on 12-04-2024 Glucose [Mass/Vol] 179 mg/dL High 70-99 [facility] Serum or plasma alanine dueñas otransferase (ALT) measurementOrdered By: Kristian Lainez on 12-04-2024 ALT [Catalytic activity/Vol] 30 U/L <35 [facility] Serum or plasma albumin jovan urement (mass/volume)Ordered By: Kristian Lainez on 12-04-2024 Albumin [Mass/Vol] 4.0 g/dL 3.5-5.0 [facility] Serum or plasma albumin/glob ulin mass ratioOrdered By: Kristian Lainez on 12-04-2024 Albumin/Globulin [Mass ratio] 1.3 {ratio} 0.9-2.4 [facility] Serum or plasma alkaline adri sphatase measurementOrdered By: Kristian Lainez on 12-04-2024 ALP [Catalytic activity/Vol] 104 U/L 35-104 [facility] Serum or plasma calcium jovan urement (mass/volume)Ordered By: Kristian Lainez on 12-04-2024 Calcium [Mass/Vol] 9.4 mg/dL 7.6-11.0 [facility] Serum or plasma urea nitroge n measurement (mass/volume)Ordered By: Kristian Lainez on 12-04-2024 Urea nitrogen [Mass/Vol] 18 mg/dL 4-19 [facility] Sodium levelOrdered By: Uziel Lainez on 12-04-2024 Sodium [Moles/Vol] 134 mmol/L 133-145 [facility] TSH DL <= 0.005 mIU/L QnOrde red By: Kristian Lainez on 12-04-2024 TSH Qn 1.750 uIU/mL 0.300-4.200 [facility] Thyroid Stim Hormone (TSH)on 12-04-2024 TSH 1.750 uIU/mL Normal 0.300-4.200 [facility] Comment on above: Performed By: #### L 501.9520, L501.9985, L500.4050, L100.0100 #### [facility] [place], [address] Total proteinOrdered By: Rhonda Lainez on 12-04-2024 Protein [Mass/Vol] 7.0 g/dL 5.9-8.4 [facility] White blood cell (WBC) count Ordered By: Kristian Lainez on 12-04-2024 WBC (Bld) [#/Vol] 8.0 10*3/uL 4.4-11.0 [facility] Anion gap in Serum or Plasma Ordered By: Silvano Truong on 11-09-2024 Anion gap [Moles/Vol] 11 mmol/L - [facility] BUN/creatinine ratioOrdered By: Silvano Truong on 11-09-2024 Urea nitrogen/Creatinine [Mass ratio] 15.7 mg/mg 10- [facility] Basic Metabolic Profile (BMP )on 11-09-2024 BUN/CRE 15.7 RATIO Normal - [facility] Comment on above: Performed By: #### L 500.2500, L501.5200 #### [facility] [address] [place], [address] Calcium [Mass/Vol] 9.5 mg/dL Normal 7.6-11.0 [facility] Comment on above: Performed By: #### L 500.2500, L501.5200 #### [facility] [address] [place], [address] Chloride [Moles/Vol] 102 mmol/L Normal 98-108 [facility] Comment on above: Performed By: #### L 500.2500, L501.5200 #### [facility] [address] [place], [address] CO2 [Moles/Vol] 24.2 mmol/L Normal 21.0-32.0 [facility] Comment on above: Performed By: #### L 500.2500, L501.5200 #### [facility] [address] [place], [address] Creatinine [Mass/Vol] 0.80 mg/dL Normal 0.70-1.20 [facility] Comment on above: Performed By: #### L 500.2500, L501.5200 #### [facility] [address] [place], [address] GAP 11 Normal 5-15 [facility] Comment on above: Performed By: #### L 500.2500, L501.5200 #### [facility] [address] [place], [address] GFR/1.73 sq M.predicted among non-blacks MDRD (S/P/Bld) [Vol rate/Area] 89 mL/min/{1.73_m2} Normal >60 [facility] Comment on above: Result Comment: mL/m in/1.73m2 CKD-EPI Creatinine Equation (2020) Performed By: #### L 500.2500, L501.5200 #### [facility] [address] [place], [address] Glucose [Mass/Vol] 183 mg/dL High 70-99 [facility] Comment on above: Performed By: #### L 500.2500, L501.5200 #### [facility] [address] [place], [address] Potassium [Moles/Vol] 4.7 mmol/L Normal 3.3-5.1 [facility] Comment on above: Performed By: #### L 500.2500, L501.5200 #### [facility] [address] [place], [address] Sodium [Moles/Vol] 137 mmol/L Normal 133-145 [facility] Comment on above: Performed By: #### L 500.2500, L501.5200 #### [facility] [address] [place], [address] Urea nitrogen [Mass/Vol] 13 mg/dL Normal 4-19 [facility] Comment on above: Performed By: #### L 500.2500, L501.5200 #### [facility] [address] [place], [address] Carbon dioxide, total [Moles /volume] in Central venous bloodOrdered By: Silvano Truong on 11-09-2024 CO2 [Moles/Vol] 24.2 mmol/L 21.0-32.0 [facility] Chloride assayOrdered By: Antonio Truong on 11-09-2024 Chloride [Moles/Vol] 102 mmol/L 98-108 [facility] Glomerular filtration rate ( GFR) estimation/1.73 sq m using serum, plasma, or whole bOrdered By: Silvano Truong on 11-09-2024 GFR/1.73 sq M.predicted among non-blacks MDRD (S/P/Bld) [Vol rate/Area] 89 mL/min/{1.73_m2} >60 [facility] Comment on above: mL/min/1.73m2 CKD-EP I Creatinine Equation (2020) Magnesiumon 11-09-2024 Magnesium [Mass/Vol] 2.3 mg/dL High 1.5-2.2 [facility] Comment on above: Performed By: #### L 500.2500, L501.5200 #### [facility] [place], [address] Magnesium measurement (mass/ volume)Ordered By: Silvano Truong on 11-09-2024 Magnesium (Unsp spec) [Mass/Vol] 2.3 mg/dL High 1.5-2.2 [facility] Potassium measurement (mass/ volume)Ordered By: Silvano Truong on 11-09-2024 Potassium (Unsp spec) [Mass/Vol] 4.7 mmol/L 3.3-5.1 [facility] Serum creatinine measurement (mass/volume)Ordered By: Silvano Truong on 11-09-2024 Creatinine [Mass/Vol] 0.80 mg/dL 0.70-1.20 [facility] Serum glucose measurement (m ass/volume)Ordered By: Silvano Truong on 11-09-2024 Glucose [Mass/Vol] 183 mg/dL High 70-99 [facility] Serum or plasma calcium jovan urement (mass/volume)Ordered By: Silvano Truong on 11-09-2024 Calcium [Mass/Vol] 9.5 mg/dL 7.6-11.0 [facility] Serum or plasma urea nitroge n measurement (mass/volume)Ordered By: Silvano Truong on 11-09-2024 Urea nitrogen [Mass/Vol] 13 mg/dL 4-19 [facility] Sodium levelOrdered By: Silvano Truong on 11-09-2024 Sodium [Moles/Vol] 137 mmol/L 133-145 [facility] Calculated very low density lipoprotein (VLDL) cholesterol measurementOrdered By: Kristian Lainez on 10-11-2024 Calculated very low density lipoprotein (VLDL) cholesterol measurement 33 mg/dL 5-40 [facility] LDL calc ser/plasOrdered By: Kristian Lainez on 10-11-2024 Cholesterol in LDL [Mass/Vol] 79 mg/dL [facility] Comment on above: Zilksovhzu=581-266 m g/dL & Higher Wmzw=185 mg/dL or greater Lipid Profileon 10-11-2024 CHOL:HDL 3.85 Normal [facility] Comment on above: Order Comment: Order Date: 08/04/24 Order Info: [id number] - LIPID Order Info: [id number] - TSH Performed By: #### L 501.9520, L500.4100 #### [facility] [address] [place], [address] Cholesterol [Mass/Vol] 152 mg/dL Normal <=200 [facility] Comment on above: Order Comment: Order Date: 08/04/24 Order Info: [id number] - LIPID Order Info: [id number] - TSH Result Comment: Chol esterol level, Desirable <200 mg/dL Borderline high cholesterol 200-239 mg/dL High cholesterol >=240 mg/dL Recommendations of the NCEP Adult Treatment Panel for the following risk-cutoff thresholds for the [place] population. Performed By: #### L 501.9520, L500.4100 #### [facility] [address] [place], [address] Cholesterol in HDL [Mass/Vol] 40 mg/dL Normal [facility] Comment on above: Order Comment: Order Date: 08/04/24 Order Info: [id number] - LIPID Order Info: [id number] - TSH Result Comment: Yes[place] onal Cholesterol Education Program (NCEP) guidelines: <40 mg/dL: Low HDL-cholesterol (major risk factor for CHD) >= 60 mg/dL: High HDL-cholesterol (negative risk factor for CHD) HDL-cholesterol is affected by a number of factors, e.g. smoking, exercise, hormones, sex and age. Performed By: #### L 501.9520, L500.4100 #### [facility] [address] [place], [address] Cholesterol in LDL [Mass/Vol] 79 mg/dL Normal [facility] Comment on above: Order Comment: Order Date: 08/04/24 Order Info: [id number] - LIPID Order Info: [id number] - TSH Result Comment: Bord hjoznj=864-138 mg/dL Higher Jmmc=164 mg/dL or greater Performed By: #### L 501.9520, L500.4100 #### [facility] [address] [place], [place], [address] Cholesterol in VLDL [Mass/Vol] 33 mg/dL Normal 5-40 [facility] Comment on above: Order Comment: Order Date: 08/04/24 Order Info: [id number] - LIPID Order Info: [id number] - TSH Performed By: #### L 501.9520, L500.4100 #### [facility] [address] [place], [place], [id number] Triglyceride [Mass/Vol] 167 mg/dL Normal [facility] Comment on above: Order Comment: Order Date: 08/04/24 Order Info: [id number] - LIPID Order Info: [id number] - TSH Result Comment: The drugs N-Acetylcysteine and Metamizole may falsely depress this assay. Normal range: <150 mg/dL Borderline High: 150-199 mg/dL High: 200-499 mg/dL Very High: >500 mg/dL Performed By: #### L 501.9520, L500.4100 #### [facility] [address] [place], [place], [id number] Screening total cholesterol/ high density lipoprotein (HDL) cholesterol ratioOrdered By: Kristian Lainez on 10-11-2024 Cholesterol.total/Cholest kelly in HDL [Mass ratio] 3.85 {ratio} [facility] Serum or plasma cholesterol in HDL measurement (mass/volume)Ordered By: Kristian Lainez on 10-11-2024 Cholesterol in HDL [Mass/Vol] 40 mg/dL >40 [facility] Comment on above: National Cholesterol Education Program (NCEP) guidelines:<40 mg/dL: Low HDL-cholesterol (major risk factor for CHD)>= 60 mg/dL: High HDL-cholesterol (negative risk factor for CHD)HDL-cholesterol is affected by a number of factors, e.g. smoking, exercise, hormones, sex and age. Serum or plasma cholesterol measurement (mass/volume)Ordered By: Kristian Lainez on 10-11-2024 Cholesterol [Mass/Vol] 152 mg/dL <201 [facility] Comment on above: Cholesterol level, D esirable <200 mg/dLBorderline high cholesterol 200-239 mg/dLHigh cholesterol >=240 mg/dLRecommendations of the NCEP Adult Treatment Panel for the following risk-cutoff thresholds for the [place] population. TSH DL <= 0.005 mIU/L QnOrde red By: Kristian Lainez on 10-11-2024 TSH Qn 0.027 uIU/mL Low 0.300-4.200 [facility] Thyroid Stim Hormone (TSH)on 10-11-2024 TSH 0.027 uIU/mL Low 0.300-4.200 [facility] Comment on above: Order Comment: Order Date: 08/04/24 Order Info: [id number] - LIPID Order Info: [id number] - TSH Performed By: #### L 501.9520, L500.4100 #### [facility] [address] [place], [address] Triglycerides measurementOrd ered By: Kristian Lainez on 10-11-2024 Triglyceride [Mass/Vol] 167 mg/dL <199 [facility] Comment on above: The drugs N-Acetylcy steine and Metamizole may falsely depress this assay. Normal range: <150 mg/dLBorderline High: 150-199 mg/dLHigh: 200-499 mg/dLVery High: >500 mg/dL Pulmonary Visit Reporton Pulmonary Visit Report [facility] [place] [address] [place] [address] OFFICE VISIT Date of Service: 09/12/24 MR#: [id number] Acct: [id number] Name: MAKENNA MAHER Rep #: [id number] : 1970 Provider: ROSALIND Loaiza Age/Sex: 54/F Location: [facility] [place].[facility] Status: Signed Assessment and Plan Assessment and Plan (1) ZOË (obstructive sleep apnea): Status: Chronic Comment: AHI 6 Plan: Deteriorated. Recent polysomnogram indicates the patient has at least mild sleep apnea. She is agreeable to pursuing AutoPap since she has failed a dental appliance. Setting of AutoPap 5 to 15 cm of water. Explained to the patient the importance of wearing the device at least 4 hours nightly, but ultimately should be worn with any time spent sleeping. She conveys understanding. Return to the office in 6 to 8 weeks to evaluate response to therapy. She has been encouraged to contact the office with any new or worsening symptoms in the meantime. (2) Obesity: Status: Chronic Qualifiers: Obesity type: due to excess calories Obesity classification: adult class 3 (BMI >= 40) Serious obesity comorbidity presence: with serious comorbidity Body mass index: BMI 45.0-49.9 Qualified Code(s): E66.813 - Obesity, class 3; Z68.42 - Body mass index [BMI] 45.0-49.9, adult Plan: Complicates exam, plan, care and prognosis. Continue to encourage weight loss. The patient reports that despite her efforts, she is not able to lose weight. I did suggest to her that she could have a conversation with her primary care doctor regarding weight loss medications, such as Zepbound which she has an indication for obstructive sleep apnea. Plan Details Additional Comments: This note was generated with [employer] dictation software. It may contain incorrect words, spelling, and punctuation that were not noted in checking the note before signing. Follow Up: 6 Weeks HPI 6 wk FU Chief Complaint: test results HPI Comments Details: This patient presents to the office today for follow-up on recent test results. She is ambulatory and currently on room air. She has not been seen in the ED or urgent care for respiratory illnesses since her last office visit. She has not required any antibiotics or prednisone for any breathing problems. She denies any shortness of breath whatsoever. She denies any cough, sputum production or hemoptysis. She does not have any wheezing, chest tightness, chest pain or palpitations. She also denies any fever, chills or body aches. She does have some difficulty with dry mouth. She is not requiring naps. She is not falling asleep unintentionally. She continues to wake up periodically throughout the night. She is not feeling rested. Test results personally viewed with the patient: Unattended sleep study completed on August 22, 2024 with an AHI 6. Impression is mild obstructive sleep apnea. Recommendation is to consider AutoPap or weight loss. Intake Vital Signs 07/31/24 07:45 09/12/24 08:11 Height 5 ft 1 in 5 ft 1 in Weight: 244 lb BMI 46.0 BP 140/93 H Blood Pressure Location Lt brachial Position Sitting Respiration 20 H Pulse 67 Pulse Source Monitor Temp 97.4 F L Temperature Source Temporal Artery Pulse Oximetry (%) 96 Oxygen Delivery Method room air Intake Visit Reasons: 6 wk FU [employer] Required: No Accompanied by: Self Allergies No Known Allergies Allergy (Verified 09/12/24 09:49) Medications ???Medication ???Instructions ???Recorded ???Confirmed ???Type lisinopril 20 mg tablet (Zestril) 20 mg PO DAILY 02/27/18 09/12/24 History Oral appliance #1 ea 05/20/21 09/12/24 Rx cholecalciferol (vitamin D3) 25 25 mcg PO QDAY 07/31/24 09/12/24 H istory mcg (1,000 unit) capsule clonidine HCl 0.1 mg tablet 0.1 - 0.2 mg PO QHS 07/31/2409/12 History cyanocobalamin (vitamin B-12) 1,000 mcg PO QDAY 07/31/24 5 History 1,000 mcg capsule duloxetine 60 mg capsule,delayed 60 mg PO QDAY 07/31/24 09/12/24 Hi story release levothyroxine 150 mcg tablet 150 mcg PO QDAY 07/31/24 09/12/24 History pyridoxine (vitamin B6) 100 mg 100 mg PO QDAY 07/31/24 09/12/24 H istory tablet rosuvastatin 10 mg tablet 10 mg PO QHS 07/31/24 09/12/24 His tory [facility] Medical History (Reviewed 09/12/24 @ 10:05 by Nicole Loaiza CLINICAL EDUCATION ASSISTANT, CLINICAL EDUCATION ASSISTANT-C) Carpal tunnel syndrome Surgical History History of carpal tunnel surgery Social History (Reviewed 09/12/24 @ 10:05 by Nicole Loaiza CLINICAL EDUCATION ASSISTANT, CLINICAL EDUCATION ASSISTANT-C) Smoking Status: Never smoker Review of Systems Resp Respiratory: Yes as per HPI Exam Const Constitutional: Positive conversant, cooperative, in no acute respiratory distress, well developed, well nourished, good h (more content not included)... Normal [facility] Pulmonary Visit Reporton Pulmonary Visit Report [facility] [place] [address] [place] [address] OFFICE VISIT Date of Service: 07/31/24 MR#: [id number] Acct: [id number] Name: MAKENNA MAHER Rep #: [id number] : 1970 Provider: Dr. Jonatan Suarez DO Age/Sex: 53/F Location: [facility] [place] Status: Signed Assessment and Plan Assessment and Plan (1) OZË (obstructive sleep apnea): Status: Chronic Plan: The patient was previously diagnosed with mild obstructive sleep apnea in 2021. She subsequently opted to utilize an oral appliance for treatment measures. However, more recently, the patient is no longer perceiving the same benefit with her oral appliance. Therefore, she discontinued its use. She currently reports the presence of nonrestorative sleep, excessive daytime sleepiness and snoring. She is interested in pursuing a trial of PAP therapy. Given that it has been 3 years since her last polysomnogram, we will obtain follow-up testing. The patient is in agreement with this plan. If ZOË is once again identified, we will consider a trial of auto titrating CPAP therapy. Orders: Orders Unattended Sleep Study Today G47.33 - Obstructive sleep apnea (adult) (pediatric) HPI HPI Comments Details: The patient is a 53-year-old female who presents to the clinic today to reestablish care after being lost to follow-up. In April 2021, the patient was referred to our office for the evaluation of sleep apnea. The patient completed a diagnostic polysomnogram in March 2021, which demonstrated an overall AHI of 5.7 events per hour. Ultimately, the patient was not interested in pursuing PAP therapy and opted to utilize an oral appliance. A follow-up sleep study was then completed in January 2022 with her oral appliance in place, which demonstrated no evidence of obstructive sleep apnea. Today, the patient reported that despite years of use with her oral appliance, she is now feeling that the intervention is no longer working. She currently endorses the presence of nonrestorative sleep, excessive daytime sleepiness and audible snoring. Given that she was no longer perceiving any benefit with the use of her oral appliance, she discontinued its use. The patient is now interested in pursuing a CPAP trial. 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 Required: No DME Vendor: None Accompanied by: Self Is patient in pain?: No Allergies No Known Allergies Allergy (Verified 07/31/24 10:44) Medications ???Medication ???Instructions ???Recorded ???Confirmed ???Type lisinopril 20 mg tablet (Zestril) 20 mg PO DAILY 02/27/18 07/31/24 History Oral appliance #1 ea 05/20/21 02/11/22 Rx cholecalciferol (vitamin D3) 25 25 mcg PO QDAY 07/31/24 07/31/24 H istory mcg (1,000 unit) capsule clonidine HCl 0.1 mg tablet 0.1 - 0.2 mg PO QHS 07/31/2407/31 History cyanocobalamin (vitamin B-12) 1,000 mcg PO QDAY 07/31/24 5 History 1,000 mcg capsule duloxetine 60 mg capsule,delayed 60 mg PO QDAY 07/31/24 07/31/24 Hi story release levothyroxine 150 mcg tablet 150 mcg PO QDAY 07/31/24 07/31/24 History pyridoxine (vitamin B6) 100 mg 100 mg PO QDAY 07/31/24 07/31/24 H istory tablet rosuvastatin 10 mg tablet 10 mg PO QHS 07/31/24 07/31/24 His tory [facility] Medical History Carpal tunnel syndrome Surgical History History of carpal tunnel surgery Social History Smoking Status: Never smoker Review of Systems Resp Respiratory: Yes as per HPI Exam Const Constitutional: Positive conversant, cooperative, in no acute respiratory distress, well developed, well nourished, good hygiene and obese Head Head: Yes normocephalic and Yes atraumatic Eyes Eye: Positive clear conjunctiva; Negative nystagmus or scleral abnormality Ears Ear: Positive hearing normal and external ears normal Nose Nose: Yes external nose normal Mouth Mouth: Positive oral mucosae normal and posterior oropharynx is adequate; Negative no lesions Neck Neck: Positive normal visual inspection and trachea midline; Negative lymphadenopathy Chest Wall Chest: Positive symmetric chest movement Normal AP diameter. Resp lung sounds: Positive clear to auscultation and good air exchange; Negative wheezes, rhonchi or rales Cardio (more content not included)... Normal [facility] Absolute lymphocyte countOrd ered By: Marylu Cartwright on 07-19-2023 Lymphocytes Auto (Unsp spec) [#/Vol] 2.00 10*3/uL 0.83-4.51 [facility] Automated lymphocyte count a s percentage of total leukocytesOrdered By: Marylu Cartwright on 07-19-2023 Lymphocytes/100 WBC Auto (Unsp spec) 26.0 % 19-41 [facility] Basophil percentageOrdered B y: Marylu Cartwright on 07-19-2023 Basophils/100 WBC (Bld) 0.7 % 0-1 [facility] Chloride [Moles/Vol] 105 mmol/L 98-107 [facility] Cholesterol [Mass/Vol] 137 mg/dL <200 [facility] Comment on above: <200 mg/dL Desirable 200-240 mg/dL Borderline >240 mg/dL High Risk Eosinophils/100 WBC (Bld) 1.2 % 0-5 [facility] Glucose [Mass/Vol] 132 mg/dL 74-106 [facility] Comment on above: Fasting Glucose resu lt greater than or equal to 126 mg/dL suggests DIABETES MELLITUS per A.D.A. criteria. Hemoglobin (Bld) [Mass/Vol] 14.8 g/dL 12.0-15.0 [facility] Monocytes/100 WBC (Bld) 7.9 % 0-10 [facility] Neutrophils (Bld) [#/Vol] 4.9 10*3/uL 2.0-7.7 [facility] Neutrophils/100 WBC (Bld) 63.9 % 47-70 [facility] Potassium [Moles/Vol] 4.2 mmol/L 3.5-5.1 [facility] Sodium [Moles/Vol] 136 mmol/L 136-145 [facility] Triglyceride [Mass/Vol] 136 mg/dL <199 [facility] Comment on above: The drugs N-Acetylcy steine and Metamizole may falsely depress this assay.Serum Triglycerides Reference Interval Normal <150 mg/dL Borderline high 150 - 199 mg/dL High 200 - 499 mg/dL Very High > or = 500 mg/dL WBC (Bld) [#/Vol] 7.7 10*3/uL 4.4-11.0 [facility] Determination of erythrocyte mean corpuscular volume (MCV)Ordered By: Marylu Cartwright on 07-19-2023 MCV (RBC) [Entitic vol] 86.5 fL 81-99 [facility] Erythrocyte distribution wid th ratioOrdered By: Marylu Cartwright on 07-19-2023 Erythrocyte distribution width (RBC) [Ratio] 11.6 % 11.6-14.6 [facility] Erythrocyte distribution wid th standard deviationOrdered By: Marylu Cartwright on 07-19-2023 Erythrocyte distribution width (RBC) [Entitic vol] 37.0 fL 35.1-43.9 [facility] Hematocrit Auto (Bld) [Volum e fraction]Ordered By: Marylu Cartwright on 07-19-2023 Hematocrit (Bld) [Volume fraction] 44.9 % 37-47 [facility] Immature granulocytes/100 WB C Auto (Bld)Ordered By: Marylu Cartwright on 07-19-2023 Immature granulocytes/100 WBC (Bld) 0.300 % 0.0-0.9 [facility] Comment on above: IG% - Immature Granu locytes (promyelocytes, myelocytes and metamyelocytes) > 1% indicates that a LEFT SHIFT is Present. Laboratory - Chemistry and C hemistry - challengeOrdered By: Marylu Cartwright on 04-22-2024 ALT [Catalytic activity/Vol] 27 U/L 13-56 [facility] Cholesterol in HDL [Mass/Vol] 42 mg/dL >40 [facility] Comment on above: The drugs N-Acetylcy steine and Metamizole may falsely depress this assay. Reference Range HDL <40 mg/dL Low HDL Cholesterol HDL >or= 60 mg/dL High HDL Cholesterol Cholesterol in LDL [Mass/Vol] 68 mg/dL 0-130 [facility] CO2 [Moles/Vol] 23.0 mmol/L 21.0-32.0 [facility] Urea nitrogen/Creatinine [Mass ratio] 15.5 mg/mg 10-20 [facility] Laboratory - Hematology and Cell countsOrdered By: Marylu Cartwright on 07-19-2023 MCH (RBC) [Entitic mass] 28.5 pg 27.0-32.0 [facility] MCHC (RBC) [Mass/Vol] 33.0 g/dL 32-36 [facility] Nucleated RBC/100 WBC (Bld) [Ratio] 0 % 0-5 [facility] Platelet mean volume (Bld) [Entitic vol] 10.4 fL 6.2-12.0 [facility] Platelets (Bld) [#/Vol] 272 10*3/uL 150-450 [facility] No Panel InformationOrdered By: Marylu Cartwright on 07-19-2023 Estimated GFR (MDRD) Amer 85 mL/min >60 [facility] Comment on above: GFR Calc Estimated GFR (MDRD) Non-Af Amer 70 mL/min >60 [facility] Comment on above: Non- GFR Calc VLDL Cholesterol 27 mg/dL 5-40 [facility] RBC Auto (Bld) [#/Vol]Ordere d By: Marylu Cartwright on 07-19-2023 RBC (Bld) [#/Vol] 5.19 10*6/uL 4.2-5.4 [facility] Serum or plasma calcium jovan urement (mass/volume)Ordered By: aMrylu Cartwright on 07-19-2023 Calcium [Mass/Vol] 9.1 mg/dL 8.5-10.1 [facility] Serum or plasma creatinine m easurement (mass/volume)Ordered By: Marylu Cartwright on 07-19-2023 Creatinine [Mass/Vol] 0.90 mg/dL 0.55-1.02 [facility] Comment on above: The validity of the calculated GFR & GFRAA in patients over 70 years has not been determined. Clinical correlation is essential. Serum or plasma thyroid stim ulating hormone (TSH) measurement (units/volume)Ordered By: Marylu Cartwright on 07-19-2023 TSH Qn 8.31 uIU/mL 0.358-3.74 [facility] Serum or plasma thyroxine (T 4) measurement (mass/volume)Ordered By: Marylu Cartwright on 07-19-2023 T4 [Mass/Vol] 8.5 ug/dL 4.8-13.9 [facility] Serum or plasma urea nitroge n measurement (mass/volume)Ordered By: Marylu Cartwright on 07-19-2023 Urea nitrogen [Mass/Vol] 14 mg/dL 7-18 [facility] Thin prep Papanicolaou smear with manual screeningOrdered By: Marylu Cartwright on 07-19-2023 Protein (U) [Mass/Vol] 14.5 mg/dL 0.0-11.8 [facility] Thin prep Papanicolaou smear with manual screening 17 U/L 15-37 [facility] Thin prep Papanicolaou smear with manual screening 8 5-15 [facility] Urine creatinine measurement (mass/volume)Ordered By: Marylu Cartwright on 07-19-2023 Creatinine (U) [Mass/Vol] 132.00 mg/dL NO RANGE EST. [facility] Urine protein/creatinine mas s ratioOrdered By: Marylu Cartwright on 07-19-2023 Protein/Creatinine (U) [Mass ratio] 110 mg/g CRE 0-200 [facility] Basophil percentageOrdered B y: Dr. Cartwright on 09-09-2022 Chloride [Moles/Vol] 106 mmol/L 98-107 [facility] Cholesterol [Mass/Vol] 263 mg/dL <200 [facility] Comment on above: <200 mg/dL Desirable 200-240 mg/dL Borderline >240 mg/dL High Risk Glucose [Mass/Vol] 128 mg/dL 74-106 [facility] Comment on above: Fasting Glucose resu lt greater than or equal to 126 mg/dL suggests DIABETES MELLITUS per A.D.A. criteria. Potassium [Moles/Vol] 4.7 mmol/L 3.5-5.1 [facility] Sodium [Moles/Vol] 137 mmol/L 136-145 [facility] Triglyceride [Mass/Vol] 148 mg/dL <199 [facility] Comment on above: The drugs N-Acetylcy steine and Metamizole may falsely depress this assay.Serum Triglycerides Reference Interval Normal <150 mg/dL Borderline high 150 - 199 mg/dL High 200 - 499 mg/dL Very High > or = 500 mg/dL Laboratory - Chemistry and C hemistry - challengeOrdered By: Dr. Cartwright on 09-09-2022 CO2 [Moles/Vol] 26.0 mmol/L 21.0-32.0 [facility] T4 [Mass/Vol] 10.5 ug/dL 4.8-13.9 [facility] Urea nitrogen/Creatinine [Mass ratio] 14.1 mg/mg 10-20 [facility] No Panel InformationOrdered By: Dr. Cartwright on 09-09-2022 Estimated GFR (MDRD) Amer 83 mL/min >60 [facility] Comment on above: GFR Calc Estimated GFR (MDRD) Non-Af Amer 68 mL/min >60 [facility] Comment on above: Non- GFR Calc Thyroid Stimulating Hormone (TSH) 2.10 uIU/mL 0.358-3.74 [facility] Urine Microalbumin/Creatinine Ratio 15.0 mg/g CRE <30 [facility] Serum or plasma calcium jovan urement (mass/volume)Ordered By: Dr. Cartwright on 09-09-2022 Calcium [Mass/Vol] 9.4 mg/dL 8.5-10.1 [facility] Serum or plasma cholesterol in HDL measurement (mass/volume)Ordered By: Dr. Cartwright on 09-09-2022 Cholesterol in HDL [Mass/Vol] 42 mg/dL >40 [facility] Comment on above: The drugs N-Acetylcy steine and Metamizole may falsely depress this assay. Reference Range HDL <40 mg/dL Low HDL Cholesterol HDL >or= 60 mg/dL High HDL Cholesterol Serum or plasma cholesterol in VLDL measurement (mass/volume)Ordered By: Dr. Cartwright on 09-09-2022 Cholesterol in VLDL [Mass/Vol] 30 mg/dL 5-40 [facility] Serum or plasma creatinine m easurement (mass/volume)Ordered By: Dr. Cartwright on 09-09-2022 Creatinine [Mass/Vol] 0.92 mg/dL 0.55-1.02 [facility] Comment on above: The validity of the calculated GFR & GFRAA in patients over 70 years has not been determined. Clinical correlation is essential. Serum or plasma low density lipoprotein (LDL) cholesterol measurement (mass/volume)Ordered By: Dr. Cartwright on 09-09-2022 Cholesterol in LDL [Mass/Vol] 191 mg/dL 0-130 [facility] Serum or plasma urea nitroge n measurement (mass/volume)Ordered By: Dr. Cartwright on 09-09-2022 Urea nitrogen [Mass/Vol] 13 mg/dL 7-18 [facility] Thin prep Papanicolaou smear with manual screeningOrdered By: Dr. Cartwright on 09-09-2022 Thin prep Papanicolaou smear with manual screening 5 5-15 [facility] Thin prep Papanicolaou smear with manual screening 31.7 mg/L NO RANGE EST. [facility] Urine creatinine measurement (mass/volume)Ordered By: Dr. Cartwright on 09-09-2022 Creatinine (U) [Mass/Vol] 211.00 mg/dL NO RANGE EST. [facility] Basophil percentageon 2021 Cholesterol [Mass/Vol] 213 mg/dL <200 [facility] Work Phone: Comment on above: <200 mg/dL Desirable 200-240 mg/dL Borderline >240 mg/dL High Risk Triglyceride [Mass/Vol] 186 mg/dL [facility] Work Phone: Comment on above: The drugs N-Acetylcy steine and Metamizole may falsely depress this assay.Serum Triglycerides Reference Interval Normal <150 mg/dL Borderline high 150 - 199 mg/dL High 200 - 499 mg/dL Very High > or = 500 mg/dL Laboratory - Chemistry and C hemistry - challengeon 07-29-2021 T4 [Mass/Vol] 9.4 ug/dL 4.8-13.9 [facility] Work Phone: No Panel Informationon 07-29 Thyroid Stimulating Hormone (TSH) 1.54 uIU/mL 0.358-3.74 [facility] Work Phone: Urine Microalbumin/Creatinine Ratio 16.9 mg/g CRE <30 [facility] Work Phone: Serum or plasma cholesterol in HDL measurement (mass/volume)on 07-29-2021 Cholesterol in HDL [Mass/Vol] 37 mg/dL [facility] Work Phone: Comment on above: The drugs N-Acetylcy steine and Metamizole may falsely depress this assay. Reference Range HDL <40 mg/dL Low HDL Cholesterol HDL >or= 60 mg/dL High HDL Cholesterol Serum or plasma cholesterol in VLDL measurement (mass/volume)on 07-29-2021 Cholesterol in VLDL [Mass/Vol] 37 mg/dL 5-40 [facility] Work Phone: Serum or plasma low density lipoprotein (LDL) cholesterol measurement (mass/volume)on 07-29-2021 Cholesterol in LDL [Mass/Vol] 139 mg/dL 0-130 [facility] Work Phone: Thin prep Papanicolaou smear with manual screeningon 07-29-2021 Thin prep Papanicolaou smear with manual screening 17.2 mg/L NO RANGE EST. [facility] Work Phone: Urine creatinine measurement (mass/volume)on 07-29-2021 Creatinine (U) [Mass/Vol] 102.00 mg/dL NO RANGE EST. [facility] Work Phone: Basophil percentageon 2021 Chloride [Moles/Vol] 110 mmol/L 98-[address] [facility] Work Phone: Glucose [Mass/Vol] 134 mg/dL 74-106 [facility] Work Phone: Comment on above: Fasting Glucose resu lt greater than or equal to 126 mg/dL suggests DIABETES MELLITUS per A.D.A. criteria. Potassium [Moles/Vol] 4.0 mmol/L 3.5-5.1 [facility] Work Phone: Sodium [Moles/Vol] 141 mmol/L 136-145 [facility] Work Phone: WBC (Bld) [#/Vol] 9.0 10*3/uL 4.4-11.0 [facility] Work Phone: Blood erythrocytes count (nu mber/volume)on 07-01-2021 RBC (Bld) [#/Vol] 4.90 10*6/uL 4.2-5.4 [facility]: Blood hemoglobin measurement (mass/volume)on 07-01-2021 Hemoglobin (Bld) [Mass/Vol] 14.6 g/dL 12.0-15.0 [facility] Work Phone: Blood platelet mean volumeon 07-01-2021 Platelet mean volume (Bld) [Entitic vol] 9.8 fL 6.2-12.0 [facility] Work Phone: Determination of erythrocyte mean corpuscular volume (MCV)on 07-01-2021 MCV (RBC) [Entitic vol] 87.6 fL 81-99 [facility] Work Phone: Hematocrit Auto (Bld) [Volum e fraction]on 07-01-2021 Hematocrit (Bld) [Volume fraction] 42.9 % 37-47 [facility] Work Phone: Laboratory - Chemistry and C hemistry - challengeon 07-01-2021 CO2 [Moles/Vol] 28.0 mmol/L 21.0-32.0 [facility] Work Phone: Urea nitrogen/Creatinine [Mass ratio] 12.7 mg/mg 10-20 [facility] Work Phone: Laboratory - Hematology and Cell countson 07-01-2021 Erythrocyte distribution width (RBC) [Entitic vol] 38.7 fL 35.1-43.9 [facility] Work Phone: Erythrocyte distribution width (RBC) [Ratio] 12.0 % 11.6-14.6 [facility] Work Phone: MCH (RBC) [Entitic mass] 29.8 pg 27.0-32.0 [facility] Work Phone: MCHC Auto (RBC) [Mass/Vol]on 07-01-2021 MCHC (RBC) [Mass/Vol] 34.0 g/dL 32-36 [facility] Work Phone: No Panel Informationon 07-01 Estimated GFR (MDRD) Amer 63 mL/min >60 [facility] Work Phone: Comment on above: GFR Calc Estimated GFR (MDRD) Non-Af Amer 52 mL/min >60 [facility] Work Phone: Comment on above: Non- GFR Calc Platelets bldon 07-01-2021 Platelets (Bld) [#/Vol] 285 10*3/uL 150-450 [facility] Work Phone: Serum or plasma calcium jovan urement (mass/volume)on 07-01-2021 Calcium [Mass/Vol] 9.2 mg/dL 8.5-10.1 [facility] Work Phone: Serum or plasma creatinine m easurement (mass/volume)on 07-01-2021 Creatinine [Mass/Vol] 1.18 mg/dL 0.55-1.02 [facility] Work Phone: Comment on above: The validity of the calculated GFR & GFRAA in patients over 70 years has not been determined. Clinical correlation is essential. Serum or plasma urea nitroge n measurement (mass/volume)on 07-01-2021 Urea nitrogen [Mass/Vol] 15 mg/dL 7-18 [facility] Work Phone: Thin prep Papanicolaou smear with manual screeningon 07-01-2021 Thin prep Papanicolaou smear with manual screening 3 5-15 [facility] Work Phone: CNCOon 12-16-2021 [facility] ID: [id number] Author: Mammography Coordinator Service: ? Author Type: Physician Type: Letter Filed: 03/17/2021 11:32 PM Note Text: March 13, 2021 PID: [id number] Makenna Maher [address] [place] [id number] Dear Ms. Maher, We are pleased to inform you that the results of your recent breast imaging exam on 03/13/2021 are normal. Early detection of cancer is very important. We also understand recommendations regarding breast cancer screening are controversial. Please discuss with your primary care provider which strategy is best for you and whether a mammogram is right for you. Your imaging studies and report will be kept on file at [facility] as part of your permanent medical record and are available for your continuing care. Thank you for allowing us to help in meeting your health care needs. Sincerely, Dr. Wetzel Interpreting Radiologist [facility] (Normal over 40) Normal [facility] ABRAN SCREENING W TOMOon 03-13 [facility] SCREENING W KOFI * * *Final Report* * * DATE OF EXAM: Mar 13 2021 10:28AM [facility] [id number] - [facility] SCREENING W KOFI / PROCEDURE REASON: Screening Mammogram with KOFI * * * * Physician Interpretation * * * * RESULT: #[id number] - ABRAN SCREENING W KOFI BILATERAL DIGITAL SCREENING MAMMOGRAM TOMOSYNTHESIS WITH CAD: 03/13/2021 HISTORY: Screening Mammogram With Kofi/ Screening Mammogram with KOFI - patient reports NO breast symptoms /priors available for comparison. RESULT: TECHNIQUE: The study was acquired using full field digital technology and interpreted from soft copy. Digital Breast Tomosynthesis (DBT) images were obtained and used to assist in the interpretation of this examination. Current study was also evaluated with a Computer Aided Detection (CAD). Comparison is made to exams dated: 06/05/2019 mammogram, 01/01/2014 ultrasound, 01/01/2014 mammogram, and 07/04/2013 ultrasound - [facility]. There are scattered fibroglandular elements in both breasts. No significant masses, calcifications, or other findings are seen in either breast. There has been no significant interval change. IMPRESSION: NEGATIVE There is no mammographic evidence of malignancy. A 1 year screening mammogram is recommended. Guerda Wetzel M.D., cp/ellen: 10:54:14 Flat Optical Element Maker(s): RT Christine(R)(M), [facility] letter sent: Normal over 40 Mammogram BI-RADS: 1 Negative Multiple national specialty organizations have released breast cancer screening guidelines for women at average risk for developing breast cancer - guidelines that are based on both evidence and opinion, yet differ on when to start and how often to screen for breast cancer. With representation from Breast Imaging, Internal Medicine, Women's Health, Family Medicine, and Medical/Surgical Oncology, the [facility] has carefully reviewed the data and reached the following consensus: 1) All women should engage in shared decision-making with their providers to decide when to start and how often to screen; 2) All women should have the opportunity to start screening mammography at age 40; 3) For women ages 45-55, we recommend annual screening mammograms; 4) For women ages 55 and over, we support both the transition from an annual to a biennial interval if this aligns more with patient's values and preferences, or continuation with annual screening; 5) All women should discuss with their providers when to stop screening mammograms. Generator Operator Straight Bevel Gear: Ellen Transcribe Date/Time: Mar 13 2021 10:13A Dictated by: GUERDA WETZEL MD This examination was interpreted and the report reviewed and electronically signed by: GUERDA WETZEL MD on Mar 13 2021 10:54AM EST [id number] Normal [facility] Vital Signs Date Time Vital Sign Value Performing Clinician Faci mario 09-12-2024 08:0400 Body mass index (BMI) [Ratio] 46 kg/m2 Dr. Marylu Cartwright MD Work Phone: [facility] 09-12-2024 08:040 Body temperature 97.4 [degF] Dr. Marylu Cartwright MD Work Phone: [facility] 09-12-2024 08:0400 Body weight 110.[address] Marylu Cartwright MD Work Phone: [facility] 09-12-2024 08:11-0400 Diastolic blood pressure 93 mm[Hg] Dr. Marylu Cartwright MD Work Phone: [facility] 09-12-2024 08:11-0400 Heart rate 67 /min Dr. Marylu Cartwright MD Work Phone: [facility] 09-12-2024 08:11-0400 Respiratory rate 20 /min Dr. Marylu Cartwright MD Work Phone: [phone] [place] [address] 09-12-2024 08:11-0400 SaO2% (BldA) [Mass fraction] 96 % Dr. Marylu Cartwright MD Work Phone: 2([phone])[phone] [place] [address] 09-12-2024 08:11-0400 Systolic blood pressure 140 mm[Hg] Dr. Marylu Cartwright MD Work Phone: 3(049)[phone] [address] 07-31-2024 07:45-0400 Body height 154.[address] Marylu Cartwright MD Work Phone: 7([phone] [place] [address] 07-31-2024 07:45-0400 Body mass index (BMI) [Ratio] 44.6 kg/m2 Dr. Marylu Cartwright MD Work Phone: [phone])[phone] [place] [address] 07-31-2024 07:45-0400 Body temperature 97.4 [degF] Dr. Marylu Cartwright MD Work Phone: 2(065)[phone] [place] [address] 07-31-2024 07:45-0400 Body weight 107.[address] Marylu Cartwright MD Work Phone: [facility] 07-31-2024 07:45-0400 Diastolic blood pressure 82 mm[Hg] Dr. Marylu Cartwright MD Work Phone: 9([phone])[phone] [address] 07-31-2024 07:45-0400 Heart rate 59 /min Dr. Marylu Cartwright MD Work Phone: [phone])[phone] [place] [address] 07-31-2024 07:45-0400 Respiratory rate 16 /min Dr. Marylu Cartwright MD Work Phone: [phone] [place] [address] 07-31-2024 07:45-0400 SaO2% (BldA) [Mass fraction] 97 % Dr. Marylu Cartwright MD Work Phone: [facility] 07-31-2024 07:45-0400 Systolic blood pressure 132 mm[Hg] Dr. Marylu Cartwright MD Work Phone: [facility] 04-22-2021 09:44-0500 Body height 154.[address] Marylu Cartwright Work Phone: [facility] Work Phone: 04-22-2021 09:44-0500 Body mass index (BMI) [Ratio] 46 kg/m2 Dr. Marylu Cartwright Work Phone: [facility] Work Phone: 04-22-2021 09:44-0500 Body temperature 98 [degF] Dr. Marylu Cartwright Work Phone: [facility] Work Phone: 04-22-2021 09:44-0500 Body weight 110.[address] Marylu Cartwright Work Phone: [facility] Work Phone: 04-22-2021 09:44-0500 Diastolic blood pressure 93 mm[Hg] Dr. Marylu Cartwright Work Phone: [facility] Work Phone: 04-22-2021 09:44-0500 Heart rate 82 /min Dr. Marylu Cartwright Work Phone: [facility] Work Phone: 04-22-2021 09:44-0500 Respiratory rate 18 /min Dr. Marylu Cartwright Work Phone: [facility] Work Phone: 04-22-2021 09:44-0500 SaO2% (BldA) [Mass fraction] 97 % Dr. Marylu Cartwright Work Phone: [facility] Work Phone: 04-22-2021 09:44-0500 Systolic blood pressure 138 mm[Hg] Dr. Marylu Cartwright Work Phone: [facility] Work Phone: Encounters Encounter Date Encounter Type Care Provider Facility Start: 01-28-2025 End: 01-28-2025 Emergency department patient visit AIMEE YOUNG [facility] Start: 12-04-2024 End: 12-04-[address] Jonatan Suarez DO Work Phone: -Laboratory [facility] Start: 12-04-2024 End: 12-04-[address] Kristian Lainez MD -Laboratory [facility] Start: 12-04-2024 End: 12-04-2024 ambulatory [facility] Facility:[facility] Start: 11-09-2024 End: 11-09-[address] Marylu Cartwright MD Work Phone: -Laboratory [facility] Start: 11-09-2024 End: 11-09-[address] Silvano Truong MD -Laboratory [facility] Start: 11-09-2024 End: 11-09-2024 ambulatory Silvano Truong Facility:[facility] Start: 10-11-2024 End: 10-11-[address] Marylu Cartwright MD Work Phone: -Laboratory Start: 10-11-2024 End: 10-11-[address] Kristian Lainez MD -Laboratory Work Phone: Start: 10-11-2024 End: 10-11-2024 [facility] Start: 09-12-2024 End: 09-12-2024 Patient encounter procedure Nicole BOYER -[facility] Work Phone: Start: 09-12-2024 End: 09-12-[address] Marylu Cartwright MD Work Phone: [facility] Work Phone: Start: 08-22-2024 End: 08-22-[address] Marylu Cartwright MD Work Phone: [facility] Work Phone: Start: 08-22-2024 End: 08-22-[address] Jonatan Suarez DO -Sleep Lab Work Phone: Start: 08-22-2024 End: 08-22-2024 ambulatory Jonatan Suarez Facility:[facility] Start: 08-10-2024 ambulatory [facility] Facility:[facility] Start: 07-31-2024 End: 07-31-[address] Jonatan Suarez DO -[facility] Work Phone: Start: 07-31-2024 End: 07-31-2024 ambulatory Jonatan Suarez Facility:[facility] Start: 07-19-2023 End: 07-19-2023 ambulatory [facility] Work Phone: Start: 07-19-2023 End: 07-19-2023 Patient encounter procedure [facility] Start: 12-16-2022 Non-patient / Non-visit Dr. King Cartwright Work Phone: [facility] Start: 12-16-2022 End: 12-16-[address] Marylu Cartwright Work Phone: [facility] Work Phone: Start: 12-16-2022 End: 12-16-[address] Marylu Cartwright Work Phone: [facility]-Pulmonary Services/Neurology Work Phone: Start: 09-09-2022 End: 09-09-2022 ambulatory [facility] Work Phone: Start: 09-09-2022 End: 09-09-2022 Patient encounter procedure [facility] Start: 07-29-2021 End: 07-29-[address] Marylu Cartwright Work Phone: [facility] Start: 06-23-2021 End: 06-23-[address] Marylu Cartwright Work Phone: [facility]-Pulmonary Services/Neurology Start: 06-23-2021 Non-patient / Non-visit Dr. King Cartwright Work Phone: [facility] Start: 04-22-2021 End: 04-22-[address] Marylu Cartwright Work Phone: [facility]-Pulmonary Medicine [facility] Start: 04-07-2021 End: 04-07-[address] Marylu Cartwright Work Phone: [facility]-Sleep Lab Start: 03-19-[address] Marylu Cartwright Work Phone: [facility]-Pulmonary Services/Neurology Procedures Date Procedure Procedure Detail Performing Clinician Start: 01-28-2025 Urinalysis AIMEE ACOSTA Comment on above: Result Comment: URIN ALYSIS Performed By: #### [id number] ####[facility],[address] [address] Immunizations Immunization Date Immunization Notes Care Provider Lindsey garcia 02-27-2018 tetanus toxoid, redu jennifer diphtheria toxoid, and acellular pertussis vaccine, adsorbed Dr. Marylu Cartwright Work Phone: [facility] Payers Date Payer Category Payer Self-pay [id number] 2019 Unknown [id number] 1970 Unknown [id number] [id number] [id number] Unknown SELF PAY INSURANCE [id number] Unknown [id number] 2.16.8 [id number] Unknown [id number] 2.16.8 [id number] Unknown [id number] 2.16.8 [id number] Unknown [id number] 2.16.8 [id number] Unknown [id number] 2.16.8 [id number] Unknown [id number] 2.16.8 [id number] Unknown [id number] 2.16.8 [id number] Social History Date Type Detail Facility Start: 04-22-2021 End: 02-11-2022 Tobacco smoking status WVIS Unknown if ever smoked [facility] Start: 1970 Sex Assigned At Female W [facility] Start: 02-11-2022 Tobacco smoking stat us WVIS Never smoked tobacco (finding) [facility] Evaluation note 09-12-2024 Note Date & Type Note Facility 09-12-2024 Evaluation note Diagnosis Onset Date Resolution Obesity chronic September 12 9:37am ZOË (obstructive sleep apnea) chronic September 12, 2024 9:37am [facility] Work Phone: Evaluation note 07-31-2024 Note Date & Type Note Facility 07-31-2024 Evaluation note Diagnosis Onset Date Resolution ZOË (obstructive sleep apnea) chronic July 31, 2024 10 :41am [facility] Work Phone: Evaluation note 07-31-2024 Note Date & Type Note Facility 07-31-2024 Evaluation note Diagnosis Onset Date Resolution ZOË (obstructive sleep apnea) chronic July 31, 2024 10 :41am Obesity chronic September 12 9:37am ZOË (obstructive sleep apnea) chronic September 12, 2024 9:37am [facility] Work Phone: Procedure note 12-16-2022 Note Date & Type Note Facility 12-16-2022 Procedure note [facility] Progress note 03-13-2021 Note Date & Type Note Facility 03-13-2021 Note HNO ID: [id number] Author: Madeline Kaminski Service: ? Author Type: Clinical Psychology Professor Type: Progress Notes Filed: 03/13/2021 10:28 AM Note Text: Radiology Service Progress Note PATIENT NAME: Makenna Maher DATE OF SERVICE: March 13, 2021 TIME: 10:10 AM PATIENT IDENTITY VERIFICATION COMPLETED USING TWO (2) IDENTIFIERS: Name and Date of confirmed by patient verbally. FALL SCREENING: Has the patient had 2 falls in the last year or 1 fall with injury or currently using an Ambulatory Assistive Device (Walker, Cane, Wheelchair, Crutches, etc.)? No PATIENT GENDER DATA: Female. status: : No status: NO. PATIENT RELEVANT IMPLANT DATA REVIEWED: Not Applicable RADIOLOGY DEPARTMENT: Mammography PERIPHERAL IV DATA: Not applicable SIGNED BY: Madeline Kaminski March 13, 2021 10:[address] [facility] Evaluation note Note Date & Type Note Facility Evaluation note Diagnosis Onset Date Adult BMI 45.0-49.9 kg/sq m acute ZOË (obstructive sleep apnea) acute [facility] Work Phone: Evaluation note Note Date & Type Note Facility Evaluation note No assessment information availa [facility] Work Phone: Reason for referral (narrative) Note Date & Type Note Facility Reason for referral (narrative) No reason for referral information available [facility] Work Phone: Summary Purpose Family History No Family History Records FoundNo Family History Records FoundNo Family History Records Found Advance Directives No Advanced Directives Records Found Advance Directive Response Recorded Date/ Time Living Will No February 27 11:28am Power of Delicatessen Department Manager No February 27, 2018 11:28am Chief Complaint and Reason for Visit Chief Complaint Carpal tunnel syndro me, bilateral upper limbs SLEEP APNEA Sleep problems PREOP Reason for Visit Adult BMI 45.0-49.9 kg/sq m ZOË (obstructive sleep apnea) Chief Complaint SLEEP APNEA Sleep problems PREOP PREOP Reason for Visit Adult BMI 45.0-49.9 kg/sq m ZOË (obstructive sleep apnea) Chief Complaint Lesion of radial ner ve, left upper limb Lesion of radial nerve, left upper limb Chief Complaint Admit Date Re-establish July 31, 2024 10:41a m G47.33 - Obstructive sleep apnea (adult) (pediatri August 22, 2024 11:56am Reason for Visit Admit Date ZOË (obstructive sleep apnea) July 31 025 10:41am Chief Complaint Admit Date Re-establish July 31, 2024 10:41a m G47.33 - Obstructive sleep apnea (adult) (pediatri August 22, 2024 11:56am 6 wk FU September 12, 2024 9:37 am Reason for Visit Admit Date ZOË (obstructive sleep apnea) July 31 025 10:41am Obesity September 12, 2024 9:37 am ZOË (obstructive sleep apnea) September 12, 2024 9:37am Chief Complaint Admit Date G47.33 - Obstructive sleep apnea (adult) (pediatri August 22, 2024 11:56am 6 wk FU September 12, 2024 9:37 am Reason for Visit Admit Date Obesity September 12, 2024 9:37 am ZOË (obstructive sleep apnea) September 12, 2024 9:37am Additional Source Comments INFORMATION SOURCE (unrecogn ized section and content) DATE CREATED AUTHOR 06/23/[address] [facility] DATE CREATED AUTHOR AUTHOR'S ORGANIZ ATION 12/09/2024 [facility] DATE CREATED AUTHOR AUTHOR'S ORGANIZ ATION 01/29/2025 [facility] Goals (unrecognized section and content) Goals may be documented in a n alternate sectionGoals may be documented in an alternate sectionGoals may be documented in an alternate sectionGoals may be documented in an alternate sectionGoals may be documented in an alternate sectionGoals may be documented in an alternate sectionGoals may be documented in an alternate sectionGoals may be documented in an alternate sectionGoals may be documented in an alternate sectionGoals may be documented in an alternate section Care Teams (unrecognized sec tion and content) Team Status: Active Member Role Status Dates Dr. Marylu Cartwright MD Family Provider Active Dr. Marylu Cartwright MD Primary Care Provider Active Team Status: Inactive Member Role Status Dates Dr. Marylu Cartwright MD Primary Care Provider, [facility] Active Team Status: Active Member Role Status Dates Dr. Marylu Cartwright MD Primary Care Provider Active Dr. James Medina , Referring Provider, Other Pr ovider Active Dr. Santos Thibodeaux MD Attending Provider Active Team Status: Inactive Member Role Status Dates Dr. Marylu Cartwright MD Primary Care Provider Active Dr. James Medina , DO Attending Provider, Referrin g Provider Active Team Status: Active Member Role Status Dates Kristian Lainez MD Primary Care Provider Active Team Status: Inactive Member Role Status Dates Dr. Marylu Cartwright MD Primary Care Provider Active Start: July 31, 2024 End: July 31, 2024 Dr. Marylu Cartwright MD Referring Provider Active Start: July 31, 2024 End: July 31, 2024 Dr. Jonatan Suarez , Attending Provider Active S tart: July 31, 2024 End: July 31, 2024 Team Status: Inactive Member Role Status Dates Dr. Jonatan Suarez DO Attending Provider Active S tart: August 22, 2024 End: August 22, 2024 Dr. Jonatan Suarez DO Referring Provider Active S tart: August 22, 2024 End: August 22, 2024 Kristian Lainez MD Primary Care Provider Active St art: August 22, 2024 End: August 22, 2024 Team Status: Inactive Member Role Status Dates Dr. Marylu Cartwright MD Referring Provider Active Start: September 12, 2024 End: September 12, 2024 Nicole Loaiza CLINICAL EDUCATION ASSISTANT, CLINICAL EDUCATION ASSISTANT-C Attending Provider Active Start: September 12, 2024 End: September 12, 2024 Kristian Lainez MD Primary Care Provider Active St art: September 12, 2024 End: September 12, 2024 Team Status: Active Member Role/Relationship Status Dates Kristain Lainez MD Primary Care Provider Active Team Status: Inactive Member Role/Relationship Status Dates Dr. Marylu Cartwright MD Primary Care Provider Active Start: July 31, 2024 End: July 31, 2024 Dr. Marylu Cartwright MD Referring Provider Active Start: July 31, 2024 End: July 31, 2024 Dr. Jonatan Suarez , Attending Provider Active S tart: July 31, 2024 End: July 31, 2024 Team Status: Inactive Member Role/Relationship Status Dates Dr. Jonatan Suarez DO Attending Provider Active S tart: August 22, 2024 End: August 22, 2024 Dr. Jonatan Suarez DO Referring Provider Active S tart: August 22, 2024 End: August 22, 2024 Kristian Lainez MD Primary Care Provider Active St art: August 22, 2024 End: August 22, 2024 Team Status: Inactive Member Role/Relationship Status Dates Dr. Marylu Cartwright MD Referring Provider Active Start: September 12, 2024 End: September 12, 2024 Nicole Loaiza NP, CLINICAL EDUCATION ASSISTANT-C Attending Provider Active Start: September 12, 2024 End: September 12, 2024 Kristian Lainez MD Primary Care Provider Active St art: September 12, 2024 End: September 12, 2024 Team Status: Inactive Member Role/Relationship Status Dates Kristian Lainez MD Primary Care Provider Active St art: October 11, 2024 End: October 11, 2024 Kristian Lainez MD Attending Provider Active Start : October 11, 2024 End: October 11, 2024 Kristian Lainez MD Referring Provider Active Start : October 11, 2024 End: October 11, 2024 Team Status: Inactive Member Role/Relationship Status Dates Kristian Lainez MD Primary Care Provider Active St art: November 09, 2024 End: November 09, 2024 Dr. Silvano Truong MD Attending Provider Active Start: November 09, 2024 End: November 09, 2024 Team Status: Inactive Member Role/Relationship Status Dates Dr. Jonatan Suarez DO Attending Provider Active S tart: August 22, 2024 End: August 22, 2024 Dr. Jonatan Suarez DO Referring Provider Active S tart: August 22, 2024 End: August 22, 2024 Kristian Lainez MD Primary Care Provider Active St art: August 22, 2024 End: August 22, 2024 Team Status: Inactive Member Role/Relationship Status Dates Dr. Marylu Cartwright MD Referring Provider Active Start: September 12, 2024 End: September 12, 2024 Nicole Loaiza NP, CLINICAL EDUCATION ASSISTANT-C Attending Provider Active Start: September 12, 2024 End: September 12, 2024 Kristian Lainez MD Primary Care Provider Active St art: September 12, 2024 End: September 12, 2024 Team Status: Inactive Member Role/Relationship Status Dates Chalon Migel , MD Primary Care Provider Active St art: October 11, 2024 End: October 11, 2024 Kristian Lainez MD Attending Provider Active Start : October 11, 2024 End: October 11, 2024 Kristian Lainez MD Referring Provider Active Start : October 11, 2024 End: October 11, 2024 Team Status: Inactive Member Role/Relationship Status Alberto Lainez MD Primary Care Provider Active St art: November 09, 2024 End: November 09, 2024 Dr. Silvano Truong MD Attending Provider Active Start: November 09, 2024 End: November 09, 2024 Team Status: Inactive Member Role/Relationship Status Alberto Lainez MD Primary Care Provider Active St art: December 04, 2024 End: December 04, 2024 Kristian Lainez MD Attending Provider Active Start : December 04, 2024 End: December 04, 2024 FOR RECORDS PERTAINING TO PATIENTS WHO ARE OR HAVE BEEN ENROLLED IN A CHEMICAL DEPENDENCY/SUBSTANCEABUSE PROGRAM, SOME INFORMATION MAY BE OMITTED. This clinical summary was aggregated from multiple sources. Caution should be exercised in using it in the provision of clinical care. This summary normalizes information from multiple sources, and as a consequence, information in this document may materially change the coding, format and clinical context of patient data. In addition, data may be omitted in some cases. CLINICAL DECISIONS SHOULD BE BASED ON THE PRIMARY CLINICAL RECORDS. [facility] [employer] [facility]. provides no warranty or guarantee of the accuracy or completeness of information in this document.
--- NOTE | 2025-03-07 07:22 | BI_ITS ---
EXAM: SCRN MAMM (CAD)W/SELVIN BILAT DATE: 03/07/2025 CLINICAL HISTORY: F, Age 54 y/o , SCREENING TECHNIQUE: Procedure Code: [id number] Modality: MG Procedure: SCRN MAMM (CAD)W/SELVIN BILAT COMPARISON: Prior exam(s) were compared FINDINGS: TISSUE DENSITY: There are scattered areas of fibroglandular density. Bilateral Breast Mammographic Findings: No significant masses, calcifications or other abnormalities are identified. BI/SCRN MAMM (CAD)W/SELVIN BILAT IMPRESSION: No mammographic evidence of malignancy. OVERALL FINAL ASSESSMENT BI-RADS 1: NEGATIVE. RECOMMENDATION: Routine annual follow-up in 1 Year Additional Recommendation none A letter with findings and recommendations will be mailed to the patient. Reading Location: [id number]
== END | disposition home or self-care (01) ==
LOC: OPBI 07:19
PROVIDERS: PCP Family Medicine; Referring Provider Family Medicine; Visit Provider Family Medicine
DX: Z12.31 Encounter for screening mammogram for malignant neoplasm of breast (principal)
CPT/HCPCS: 77063; 77067